=== PATIENT | female | born 1990 | race Caucasian/White ===

== ENCOUNTER 2017-08-10 16:26 | Emergency (ER) | payer MEDICAID ==
[2017-08-10] MEDS ORDERED: Acetaminophen/HYDROcodone 325-5 MG Tab PO ONE (17:11)
[2017-08-10] MEDS ORDERED: Penicillin V Potassium 500 MG Tab PO ONE (17:11)
--- NOTE | 2017-08-10 17:16 | EDM.PDOC ---
ED HPI GENERAL MEDICAL PROBLEM - General Chief Complaint: ENT Problem Stated Complaint: TOOTH PAIN Time Seen by Provider: 08/10/17 17:00 Source of Information: Reports: Patient History Limitations: Reports: No Limitations - History of Present Illness INITIAL COMMENTS - FREE TEXT/NARRATIVE: Patient is a 27-year-old female presents ED complaining of left upper tooth pain. States approximately one year ago the tooth broke off. She has not had any dental care since. She is saving money to have teeth pulled. Denies any swelling to the gumline abnormal drainage. Pain is worse with chewing on the affected side. Denies any additional complaint. Left Upper Tooth/Teeth Pain Score (Numeric/FACES): 7 - Related Data Allergies Allergy/AdvReac Type Severity Reaction Status Date / Time azithromycin Allergy Hives Verified 08/10/17 16:49 prochlorperazine Allergy Itching Verified 08/10/17 16:49 [From Compazine] iv contrast Allergy Chest Uncoded 08/10/17 16:49 Presssure Home Meds: Home Meds Penicillin V Potassium [IJD: Penicillin V Potassium] 500 mg PO .EVERY 6 HOURS # 40 tab 08/10/17 [Rx] Past Medical History HEENT History: Reports: Other (See Below) Other HEENT History: dental issues Gastrointestinal History: Reports: Irritable Bowel Syndrome - Past Surgical History GI Surgical History: Reports: Cholecystectomy Female Surgical History: Reports: Section Social & Family History - Tobacco Use Smoking Status *Q: Current Every Day Smoker Years of Tobacco use: 8 Packs/Tins Daily: 0.5 - Caffeine Use Caffeine Use: Reports: Energy Drinks, Soda - Recreational Drug Use Recreational Drug Use: No ED ROS ENT - Review of Systems Review Of Systems: ROS reveals no pertinent complaints other than HPI. ED EXAM, ENT - Physical Exam Exam: See Below Exam Limited By: No Limitations General Appearance: Alert, WD/WN, No Apparent Distress Ears: Hearing Grossly Normal Nose: Normal Inspection Mouth/Throat: Normal Gums, Normal Lips, Dental Tenderness (#14 tooth. Mild pain with palpation the gumline with no swelling present. No drainage noted. Tooth is partially fractured off.). No: Normal Teeth Neck: Normal Inspection, Supple, Non-Tender, Full Range of Motion. No: Lymphadenopathy (L), Lymphadenopathy (R) Respiratory/Chest: No Respiratory Distress, No Accessory Muscle Use Cardiovascular: Normal Peripheral Pulses, Regular Rate, Rhythm Neurological: Alert, Oriented, CN II-XII Intact, Normal Cognition, No Motor/ Sensory Deficits Psychiatric: Normal Affect, Normal Mood Skin: Warm, Dry, Intact, Normal Color Course - Vital Signs Last Recorded V/S: Last Vital Signs Temp 98.9 F 08/10/17 16:45 Pulse 66 08/10/17 16:45 Resp 20 08/10/17 16:45 BP 124/76 08/10/17 16:45 Pulse Ox 100 08/10/17 16:45 - Orders/Labs/Meds Orders: Active Orders 24 hr Category Date Time Status Acetaminophen/HYDROcodone [[place] 325-5 MG] Med 08/10/17 17:11 Once 1 tab PO ONETIME ONE Penicillin V Potassium [Veetids] Med 08/10/17 17:11 Once 500 mg PO ONETIME ONE - Re-Assessments/Exams Free Text/Narrative Re-Assessment/Exam: Order [place] 5?3 25 and penicillin 500 mg by mouth. We'll discharge patient home with instructions as documented. Departure - Departure Time of Disposition: 17:14 Disposition: Home, Self-Care 01 Condition: Good Clinical Impression: Infected dental caries - Discharge Information Prescriptions: Penicillin V Potassium [IJD: Penicillin V Potassium] 500 mg PO .EVERY 6 HOURS # 40 tab Additional Instructions: Take Tylenol 650 mg every 6 hours and ibuprofen 650 mg every 6 hours in alternating fashion for pain. If not working may switch to Aleve 1-2 tabs twice a day. Do not chew on the affected side. Utilize a fake filling that can be obtained at one of the local pharmacies to reduce exposure to air, fluids, and food. Call and make an appointment to be seen by a dentist this week for definitive treatment. See yor primary care provider for further pain management. Return to the ED if you develop any new or worsening symptoms. Do not drive since receiving a sedative pain medication in the E.D. - My Orders Last 24 Hours: My Active Orders 08/10/17 17:11 Acetaminophen/HYDROcodone [[place] 325-5 MG] 1 tab PO ONETIME ONE Penicillin V Potassium [Veetids] 500 mg PO ONETIME ONE - Assessment/Plan Last 24 Hours: My Active Orders 08/10/17 17:11 Acetaminophen/HYDROcodone [[place] 325-5 MG] 1 tab PO ONETIME ONE Penicillin V Potassium [Veetids] 500 mg PO ONETIME ONE
== END 2017-08-10 17:33 | disposition home or self-care (01) ==
LOC: JD.ED 16:26
DX: K02.9 Dental caries, unspecified (principal); F17.210 Nicotine dependence, cigarettes, uncomplicated; Z88.1 Allergy status to other antibiotic agents; Z88.8 Allergy status to other drugs, medicaments and biological substances; Z91.041 Radiographic dye allergy status
CPT/HCPCS: 99282; A9270; 99283

== ENCOUNTER 2017-08-21 16:34 | Emergency (ER) | payer MEDICAID ==
--- NOTE | 2017-08-21 16:58 | EDM.PDOC ---
ED HPI GENERAL MEDICAL PROBLEM - General Chief Complaint: ENT Problem Stated Complaint: PRESSURE IN FACE Time Seen by Provider: 08/21/17 16:39 Source of Information: Reports: Patient History Limitations: Reports: No Limitations - History of Present Illness INITIAL COMMENTS - FREE TEXT/NARRATIVE: The patient presents with right upper jaw tooth pain. This started a few days ago after she broke a tooth. She has redness and swelling now with pain to her face. She does not have a fever or chills. She has some bad teeth but she does not have a dentist. Onset: Gradual Duration: Day(s): Location: Reports: Face Quality: Reports: Sharp Severity: Severe Improves with: Reports: None Worsens with: Reports: None Associated Symptoms: Reports: No Other Symptoms Right Upper Tooth/Teeth Pain Score (Numeric/FACES): 10 - Related Data Allergies Allergy/AdvReac Type Severity Reaction Status Date / Time azithromycin Allergy Hives Verified 08/10/17 16:49 prochlorperazine Allergy Itching Verified 08/10/17 16:49 [From Compazine] iv contrast Allergy Chest Uncoded 08/10/17 16:49 Presssure Home Meds: Home Meds Penicillin V Potassium [IJD: Penicillin V Potassium] 500 mg PO .EVERY 6 HOURS # 40 tab 08/10/17 [Rx] Penicillin V Potassium 500 mg PO Q6HR #40 tab 08/21/17 [Rx] oxyCODONE HCl/Acetaminophen [Percocet 5-325 mg Tablet] 1 - 2 each PO Q6HR PRN # 20 tablet 08/21/17 [Rx] Past Medical History HEENT History: Reports: Other (See Below) Other HEENT History: dental issues Gastrointestinal History: Reports: Irritable Bowel Syndrome - Past Surgical History GI Surgical History: Reports: Cholecystectomy Female Surgical History: Reports: Section Social & Family History - Tobacco Use Smoking Status *Q: Current Every Day Smoker Years of Tobacco use: 8 Packs/Tins Daily: 0.5 - Caffeine Use Caffeine Use: Reports: Energy Drinks, Soda - Recreational Drug Use Recreational Drug Use: No ED ROS ENT - Review of Systems Review Of Systems: See Below Constitutional: Reports: No Symptoms HEENT: Reports: Dental Pain Respiratory: Reports: No Symptoms Cardiovascular: Reports: No Symptoms Endocrine: Reports: No Symptoms GI/Abdominal: Reports: No Symptoms ED EXAM, ENT - Physical Exam Exam: See Below Exam Limited By: No Limitations General Appearance: Alert, No Apparent Distress Ears: Normal External Exam Nose: Normal Inspection Mouth/Throat: Other (There are multiple cavities and a fractured tooth to the right upper jaw. It appears to be a premolar and 1st molar. There is some erythema and some edema.) Course - Vital Signs Last Recorded V/S: Last Vital Signs Temp 98.4 F 08/21/17 16:39 Pulse 88 08/21/17 16:39 Resp 20 08/21/17 16:39 BP 122/73 08/21/17 16:39 Pulse Ox 96 08/21/17 16:39 Departure - Departure Time of Disposition: 17:00 Disposition: Home, Self-Care 01 Condition: Good Clinical Impression: Dental abscess, Pain, dental, Dental cavity - Discharge Information Prescriptions: oxyCODONE HCl/Acetaminophen [Percocet 5-325 mg Tablet] 1 - 2 each PO Q6HR PRN # 20 tablet PRN Reason: Pain Penicillin V Potassium 500 mg PO Q6HR #40 tab Referrals: PCP,None [Primary Care Provider] - Additional Instructions: Take the medication as prescribed. Follow up with a dentist. [facility] in [place] may be able to help you. Please return if you are worse.
== END 2017-08-21 17:10 | disposition home or self-care (01) ==
LOC: JD.ED 16:34
DX: K04.7 Periapical abscess without sinus (principal); K02.9 Dental caries, unspecified; Z88.1 Allergy status to other antibiotic agents; Z88.8 Allergy status to other drugs, medicaments and biological substances; Z91.041 Radiographic dye allergy status; F17.210 Nicotine dependence, cigarettes, uncomplicated
CPT/HCPCS: 99283

== ENCOUNTER 2017-10-17 10:16 | Emergency (ER) | payer MEDICAID ==
--- NOTE | 2017-10-17 11:02 | EDM.PDOC ---
ED HPI GENERAL MEDICAL PROBLEM - General Chief Complaint: Genitourinary Problem Stated Complaint: PAINFUL URINATION Time Seen by Provider: 10/17/17 10:52 Source of Information: Reports: Patient History Limitations: Reports: No Limitations - History of Present Illness INITIAL COMMENTS - FREE TEXT/NARRATIVE: The patient states that she developed dysuria, including a throbbing urethra, urinary urgency, and urinary frequency 3 or 4 days ago, just after she started her menstrual period 4 days ago. She reports a small amount of lower left back pain, as well. Recent fever. No recent nausea or vomiting. The patient states that she has had similar symptoms perhaps 6 times in her life , always due to a UTI. She has no history of ureterolithiasis. The patient states that she has not taken any [id number] medicines or home remedies for her current symptoms. The patient does not have a PCP. 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 Lower Pelvic Pain Score (Numeric/FACES): 9 - Related Data Allergies Allergy/AdvReac Type Severity Reaction Status Date / Time azithromycin Allergy Hives Verified 10/17/17 10:32 prochlorperazine Allergy Itching Verified 10/17/17 10:32 [From Compazine] iv contrast Allergy Chest Uncoded 10/17/17 10:32 Presssure Home Meds: Home Meds Sulfamethoxazole/Trimethoprim [Bactrim Ds Tablet] 1 tab PO Q12H #5 tablet [Rx] Past Medical History HEENT History: Reports: Other (See Below) Other HEENT History: dental issues Gastrointestinal History: Reports: Irritable Bowel Syndrome 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: - Infectious Disease History Infectious Disease History: Reports: Chicken Pox - Past Surgical History GI Surgical History: Reports: Cholecystectomy Female Surgical History: Reports: Section (x 2) Social & Family History - Tobacco Use Smoking Status *Q: Current Every Day Smoker Years of Tobacco use: 8 Packs/Tins Daily: 0.5 - Caffeine Use Caffeine Use: Reports: Energy Drinks, Soda - Alcohol Use Alcohol Use History: Yes Alcohol Use Frequency: Socially - Recreational Drug Use Recreational Drug Use: No - Living Situation & Occupation Living situation: Reports: , with Significant Other (Boyfriend), with Family (2 kids) Occupation: Employed ([employer]) ED ROS GENERAL - Review of Systems Review Of Systems: ROS reveals no pertinent complaints other than HPI. ED EXAM, RENAL/ - Physical Exam Exam: See Below Exam Limited By: No Limitations General Appearance: Alert, WD/WN, No Apparent Distress Eye Exam: Bilateral Eye: Normal Inspection Ears: Normal External Exam, Hearing Grossly Normal Nose: Normal Inspection, No Blood Throat/Mouth: Normal Inspection, Normal Lips, Normal Voice, No Airway Compromise Head: Atraumatic, Normocephalic Neck: Normal Inspection, Full Range of Motion Respiratory/Chest: No Respiratory Distress, Lungs Clear, Normal Breath Sounds, No Accessory Muscle Use Cardiovascular: Normal Peripheral Pulses, Regular Rate, Rhythm, No Edema, No Gallop, No JVD, No Murmur, No Rub GI/Abdominal: Normal Bowel Sounds, Soft, No Organomegaly, No Distention, No Abnormal Bruit, No Mass, Tender (Minimal, suprapubic only. Nontender elsewhere.) (Female) Exam: Deferred Rectal (Female) Exam: Deferred Back Exam: Normal Inspection, Full Range of Motion. No: CVA Tenderness (L), CVA Tenderness (R) Extremities: Normal Inspection, Normal Range of Motion, No Pedal Edema, Normal Capillary Refill Neurological: Alert, Oriented, Normal Cognition, No Motor/Sensory Deficits Psychiatric: Normal Affect Skin Exam: Warm, Dry, Intact, Normal Color, No Rash Course - Vital Signs Last Recorded V/S: Last Vital Signs Temp 36.5 C 10/17/17 10:30 Pulse 80 10/17/17 10:30 Resp 18 10/17/17 10:30 BP 108/64 10/17/17 10:30 Pulse Ox 100 10/17/17 10:30 - Orders/Labs/Meds Orders: Active Orders 24 hr Category Date Time Status Insert Mathew Catheter [Insert Urinary Catheter] [OM.PC] Care 10/17/17 10:45 Ordered Q24H Urinary Catheter Assessment [RC] ASDIRECTED Care 10/17/17 10:45 Active HCG QUALITATIVE,URINE [URCHEM] Stat Lab 10/17/17 10:50 Ordered UA W/MICROSCOPIC [URIN] Stat Lab 10/17/17 10:50 Ordered Labs: Laboratory Tests 10/17/17 10/17/17 Range/Units 10:50 10:50 Urine Color Yellow (Yellow) Urine Appearance Cloudy H (Clear) Urine pH 6.0 (5.0-8.0) Ur Specific [place] 1.025 (1.005-1.030) Urine Protein 1+ H (Negative) Urine Glucose (UA) Negative (Negative) Urine Ketones Negative (Negative) Urine Occult Blood 3+ H (Negative) Urine Nitrite Negative (Negative) Urine Bilirubin Negative (Negative) Urine Urobilinogen 0.2 (0.2-1.0) Ur Leukocyte Esterase 3+ H (Negative) Urine RBC 5-10 H (0-5) /hpf Urine WBC 20-30 H (0-5) /hpf Ur Epithelial Cells 0-5 (0-5) /hpf Urine Bacteria Few (FEW) /hpf Urine Mucus Not seen (FEW) /hpf Urine HCG, Qual Negative (NEGATIVE) - Re-Assessments/Exams Free Text/Narrative Re-Assessment/Exam: 10/17/17 11:37 The patient's urinalysis shows primarily pyuria, with very little bacteria, nevertheless, because the patient is so symptomatic, I will treat her for a UTI with Bactrim and Pyridium. A urine culture has been ordered. 10/17/17 11:43 Test results discussed with the patient. As above, the patient will receive her first dose of Bactrim and Pyridium here in the ED, then I will prescribe a three -day course of Bactrim. Azo is available [id number]. Patient is advised to stay adequately hydrated. I would like the patient to follow-up with Dr. Flowers this coming 10/20/2017, not only check on her urine culture results , but to establish her as a PCP, as well. Departure - Departure Time of Disposition: 11:44 Disposition: Home, Self-Care 01 Condition: Good Clinical Impression: Cystitis - Discharge Information Referrals: PCP,None [Primary Care Provider] - Mahi Flowers MD [Physician] - Forms: ED Department Discharge Additional Instructions: You were seen in the emergency room for painful urination, urinary frequency, and urinary urgency. Workup in the ER included a urinalysis and a urine test. Your urinalysis shows some white blood cells in your urine, consistent with a UTI, but only a few bacteria, therefore it is not certain that you have a urinary tract infection. A urine culture was sent. Your urine test was negative. You have been started on the antibiotic Bactrim. A prescription for Bactrim has been sent to the [facility], [address] [place] [address]. Take one tablet every 12 hours starting tonight, 10/17/2017. Finish the entire prescription unless told otherwise by a doctor. You have also been started on the anti-pain medicine Pyridium. Pyridium is sold [id number] as "Azo". You can take a total of 6 doses, meaning that you have 5 more. You can take 1 dose twice a day for 3 days or one dose 3 times a day for 2 days - your choice. Be aware that Pyridium will turn your urine orange - this is normal. Stay adequately hydrated. It does not make any difference what fluid you drink. Follow-up with Dr. Mahi Flowers this coming 10/20/2017, not only to check on your urine culture results, but to establish her as a primary care physician. If any other problems, please do not hesitate to return to the ER. - My Orders Last 24 Hours: My Active Orders 10/17/17 10:45 Insert Mathew Catheter [Insert Urinary Catheter] [OM.PC] Q24H Urinary Catheter Assessment [RC] ASDIRECTED 10/17/17 10:50 HCG QUALITATIVE,URINE [URCHEM] Stat UA W/MICROSCOPIC [URIN] Stat - Assessment/Plan Last 24 Hours: My Active Orders 10/17/17 10:45 Insert Mathew Catheter [Insert Urinary Catheter] [OM.PC] Q24H Urinary Catheter Assessment [RC] ASDIRECTED 10/17/17 10:50 HCG QUALITATIVE,URINE [URCHEM] Stat UA W/MICROSCOPIC [URIN] Stat
[2017-10-17] MEDS ORDERED: Sulfamethoxazole/Trimethoprim 800-160 MG Tab PO ONE (11:36)
[2017-10-17] MEDS ORDERED: Phenazopyridine 95 MG Tab PO STA (11:38)
== END 2017-10-17 12:00 | disposition home or self-care (01) ==
LOC: JD.ED 10:16
DX: N30.90 Cystitis, unspecified without hematuria (principal); B96.20 Unspecified Escherichia coli [E. coli] as the cause of diseases classified elsewhere; F17.210 Nicotine dependence, cigarettes, uncomplicated; Z88.1 Allergy status to other antibiotic agents; Z88.8 Allergy status to other drugs, medicaments and biological substances
CPT/HCPCS: 51702; 81001; 81025; 87086; 87088; 87186; 99283; A9270; 99284

== ENCOUNTER 2019-02-02 06:21 | Emergency (ER) | payer BC, MEDICAID ==
--- NOTE | 2019-02-02 07:03 | EDM.PDOC ---
ED HPI GENERAL MEDICAL PROBLEM - General Chief Complaint: Genitourinary Problem Stated Complaint: POSS UTI Time Seen by Provider: 02/02/19 07:03 Source of Information: Reports: Patient History Limitations: Reports: No Limitations - History of Present Illness INITIAL COMMENTS - FREE TEXT/NARRATIVE: 28-year-old female presents with severe dysuria urgency and frequency with some chills over the last 48 hours. She has noted gross hematuria this morning. She had a bladder infection about a month to 6 weeks ago. Did not think that she could be . However. She test will be done. Diffuse suprapubic abdominal pain and no back pain does feel further bluish or she was up about every half- hour voiding all night. Onset: Gradual Onset Date: 02/01/19 Duration: Hour(s):, Getting Worse Location: Reports: Abdomen (Suprapubic abdomen associate with urinary tract symptoms of urgency frequency and dysuria.) Quality: Reports: Other Severity: Moderate (Dysuria) Improves with: Reports: None Worsens with: Reports: None Context: Denies: Activity, Exercise, Lifting, Sick Contact, Trauma, Other Associated Symptoms: Reports: Fever/Chills, Nausea/Vomiting (Mild nausea). 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.) Pelvic Pain Score (Numeric/FACES): 8 - Related Data Allergies Allergy/AdvReac Type Severity Reaction Status Date / Time azithromycin Allergy Hives Verified 02/02/19 06:27 prochlorperazine Allergy Itching Verified 02/02/19 06:27 [From Compazine] iv contrast Allergy Chest Uncoded 10/17/17 10:32 Presssure Home Meds: Home Meds Phenazopyridine HCl [Pyridium] 100 mg PO Q6H #2 tablet 02/02/19 [Rx] levoFLOXacin [Levaquin] 500 mg PO DAILY #7 tab 02/02/19 [Rx] Past Medical History HEENT History: Reports: Other (See Below) Other HEENT History: dental issues Gastrointestinal History: Reports: Irritable Bowel Syndrome Genitourinary History: Reports: UTI, Recurrent 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: Neurological History: Reports: Migraines - Infectious Disease History Infectious Disease History: Reports: Chicken Pox - Past Surgical History GI Surgical History: Reports: Cholecystectomy Female Surgical History: Reports: Section Social & Family History - Tobacco Use Smoking Status *Q: Current Every Day Smoker Years of Tobacco use: 10 Packs/Tins Daily: 1 - Caffeine Use Caffeine Use: Reports: Energy Drinks, Soda - Living Situation & Occupation Living situation: Reports: , with Significant Other (Boyfriend), with Family (2 kids) Occupation: Employed ([employer]) ED ROS GENERAL - Review of Systems Review Of Systems: See Below Constitutional: Reports: Fever, Malaise (Low-grade fever last night.), Weakness , Fatigue, Decreased Appetite (Not sleeping all night.). Denies: Chills HEENT: Reports: No Symptoms Respiratory: Reports: No Symptoms Cardiovascular: Reports: No Symptoms Endocrine: Reports: No Symptoms GI/Abdominal: Reports: Abdominal Pain (Suprapubic abdominal pressure discomfort. ) : Reports: Dysuria, Frequency, Hematuria, Urgency Musculoskeletal: Reports: No Symptoms (Did notice gross hematuria this morning.) . Denies: Back Pain Skin: Reports: No Symptoms Neurological: Reports: No Symptoms Psychiatric: Reports: No Symptoms Hematologic/Lymphatic: Reports: No Symptoms Immunologic: Reports: No Symptoms ED EXAM, RENAL/ - Physical Exam Exam: See Below Exam Limited By: No Limitations General Appearance: Alert, WD/WN, Mild Distress, Other (Appears uncomfortable. Essentially she is afebrile 36.9. Pulse is [address] no sats of 98% on room air.) Eye Exam: Bilateral Eye: Normal Inspection Head: Atraumatic, Normocephalic Neck: Normal Inspection, Supple, Non-Tender, Full Range of Motion Respiratory/Chest: No Respiratory Distress, Lungs Clear, Normal Breath Sounds, No Accessory Muscle Use, Chest Non-Tender Cardiovascular: Normal Peripheral Pulses, Regular Rate, Rhythm, No Edema, No Gallop, No Murmur, No Rub GI/Abdominal: Normal Bowel Sounds, Soft, No Organomegaly, No Abnormal Bruit, Tender. No: Guarding (Tender suprapubically. No rebound or guarding), Rigid, Rebound Back Exam: Normal Inspection, Full Range of Motion. No: CVA Tenderness (L), CVA Tenderness (R) Extremities: Normal Inspection, Normal Range of Motion, Non-Tender, No Pedal Edema Neurological: Alert, Oriented, CN II-XII Intact, Normal Cognition, Normal Gait Psychiatric: Normal Affect, Normal Mood Skin Exam: Warm, Dry, Intact, Normal Color, No Rash Course - Vital Signs Last Recorded V/S: Last Vital Signs Temp 36.9 C 02/02/19 06:28 Pulse 87 02/02/19 06:28 Resp 18 02/02/19 06:28 BP 112/67 02/02/19 06:28 Pulse Ox 98 02/02/19 06:28 - Orders/Labs/Meds Orders: Active Orders 24 hr Category Date Time Status HCG QUALITATIVE,URINE [URCHEM] Stat Lab 02/02/19 06:40 Received UA W/MICROSCOPIC [URIN] Stat Lab 02/02/19 06:35 Results levoFLOXacin [Levaquin] Med 02/02/19 07:46 Once 500 mg PO ONETIME ONE Labs: Laboratory Tests 02/02/19 Range/Units 06:35 Urine Color Yellow (Yellow) Urine Appearance Cloudy H (Clear) Urine pH 6.5 (5.0-8.0) Ur Specific [place] > or = 1.030 (1.005-1.030) Urine Protein 2+ H (Negative) Urine Glucose (UA) Negative (Negative) Urine Ketones Negative (Negative) Urine Occult Blood 2+ H (Negative) Urine Nitrite Positive H (Negative) Urine Bilirubin Negative (Negative) Urine Urobilinogen 0.2 (0.2-1.0) Ur Leukocyte Esterase 2+ H (Negative) Meds: Medications Discontinued Medications Generic Name Dose Route Start Last Admin Trade Name Graysonq PRN Reason Stop Dose Admin Phenazopyridine HCl 95 mg 02/02/19 09:00 Urinary Pain Relief PO TIDPC [facility] Phenazopyridine HCl 95 mg 02/02/19 07:09 02/02/19 07:23 Urinary Pain Relief PO 02/02/19 07:10 95 mg NOW ONE Administration - Radiology Interpretation Free Text/Narrative:: 28-year-old female presents with acute onset of lower urinary tract symptoms over the last 48 hours. She was offered a half hour voiding last night with severe dysuria urgency and now development of gross hematuria. She is prone to urinary tract infections. She believes her last was about a month ago. No signs or symptoms of upper urinary tract symptoms at this time. - Re-Assessments/Exams Free Text/Narrative Re-Assessment/Exam: 02/02/19 07:44 Dip shows cloudy urine 2+ protein 2+ occult blood positive nitrates and 2+ leukocyte Estrace. Departure - Departure Time of Disposition: 07:47 Disposition: Home, Self-Care 01 Condition: Fair Clinical Impression: UTI, Urinary tract infectious disease - Discharge Information *PRESCRIPTION DRUG MONITORING PROGRAM REVIEWED*: Not Applicable *COPY OF PRESCRIPTION DRUG MONITORING REPORT IN PATIENT LESVIA: Not Applicable Prescriptions: levoFLOXacin [Levaquin] 500 mg PO DAILY #7 tab Phenazopyridine HCl [Pyridium] 100 mg PO Q6H #2 tablet Referrals: Mahi Flowers MD [Primary Care Provider] - Forms: ED Department Discharge, ED Return to Work/School Form Additional Instructions: Evaluation the emergency room this morning in regards to development of lower urinary tract symptoms of infection over the last 2 days. Associated marked dysuria means painful urination urgency and frequency overnight with associated development of blood in the urine. Because of this gross hematuria. Urinalysis done in the ED is strongly positive for infection. At this point time it does not show any evidence of kidney infection. Was started in the ED with Levaquin 500 mg by mouth as an antibiotic and you need to take this once daily every morning for the next 7 days. Pyridium you are given initial dose in the ED next dose would be due around 12:30 this afternoon and again at 1830 hrs. this evening if needed to relieve further symptoms of dysuria urgency or frequency. Drink plenty of fluids today tach is a flush. - My Orders Last 24 Hours: My Active Orders 02/02/19 07:46 levoFLOXacin [Levaquin] 500 mg PO ONETIME ONE - Assessment/Plan Last 24 Hours: My Active Orders 02/02/19 07:46 levoFLOXacin [Levaquin] 500 mg PO ONETIME ONE
[2019-02-02] MEDS ORDERED: Phenazopyridine 95 MG Tab PO ONE (07:09)
[2019-02-02] MEDS ORDERED: Levofloxacin 250 MG Tab PO ONE (07:46)
[2019-02-02] MEDS ORDERED: Phenazopyridine 95 MG Tab PO SCH (09:00)
== END 2019-02-02 08:00 | disposition home or self-care (01) ==
LOC: JD.ED 06:21
DX: N39.0 Urinary tract infection, site not specified (principal); F17.210 Nicotine dependence, cigarettes, uncomplicated; Z88.1 Allergy status to other antibiotic agents; Z88.8 Allergy status to other drugs, medicaments and biological substances; Z91.041 Radiographic dye allergy status
CPT/HCPCS: 81001; 81025; 99283; A9270

== ENCOUNTER 2019-06-04 18:33 | Emergency (ER) | payer BC ==
[2019-06-04] MEDS ORDERED: Codeine/Promethazine 10-6.25 MG/5 ML Syrup 5 ML UD Cup PO ONE (19:05)
--- NOTE | 2019-06-04 19:11 | EDM.PDOC ---
ED HPI GENERAL MEDICAL PROBLEM - General Chief Complaint: Respiratory Problem Stated Complaint: sick one week chest pain and back pain Time Seen by Provider: 06/04/19 18:58 Source of Information: Reports: Patient History Limitations: Reports: No Limitations - History of Present Illness INITIAL COMMENTS - FREE TEXT/NARRATIVE: The patient presents with a cough, fever, shortness of breath, back pain and chest pain. The cough and fever have been going on for a few days. She developed the chest pain and back pain today. She has no history of asthma. She does smoke. Onset: Gradual Duration: Day(s): Location: Reports: Chest, Back Quality: Reports: Sharp Severity: Moderate Improves with: Reports: None Worsens with: Reports: None Associated Symptoms: Reports: Cough, Fever/Chills, Shortness of Breath. Denies : Chest Pain, Headaches, Nausea/Vomiting Upper Back Pain Score (Numeric/FACES): 10 - Related Data Allergies Allergy/AdvReac Type Severity Reaction Status Date / Time azithromycin Allergy Hives Verified 06/04/19 18:41 prochlorperazine Allergy Itching Verified 06/04/19 18:41 [From Compazine] iv contrast Allergy Chest Uncoded 10/17/17 10:32 Presssure Home Meds: Home Meds Albuterol [Proventil HFA] 2 puff INH Q4H PRN #1 inhaler 06/04/19 [Rx] Codeine/Promethazine [Phenergan with Codeine] 5 - 10 ml PO Q6HR PRN #300 ml [Rx] Doxycycline [Vibramycin] 100 mg PO BID #14 cap 06/04/19 [Rx] Past Medical History HEENT History: Reports: Other (See Below) Other HEENT History: dental issues Gastrointestinal History: Reports: Irritable Bowel Syndrome Genitourinary History: Reports: UTI, Recurrent 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: Neurological History: Reports: Migraines - Infectious Disease History Infectious Disease History: Reports: Chicken Pox - Past Surgical History GI Surgical History: Reports: Cholecystectomy Female Surgical History: Reports: Section Social & Family History - Tobacco Use Smoking Status *Q: Current Every Day Smoker Years of Tobacco use: 10 Packs/Tins Daily: 0.5 - Caffeine Use Caffeine Use: Reports: None - Recreational Drug Use Recreational Drug Use: No - Living Situation & Occupation Living situation: Reports: , with Significant Other (Boyfriend), with Family (2 kids) Occupation: Employed ([employer]) ED ROS GENERAL - Review of Systems Review Of Systems: See Below Constitutional: Reports: No Symptoms HEENT: Reports: No Symptoms Respiratory: Reports: Shortness of Breath, Cough Cardiovascular: Reports: Chest Pain Endocrine: Reports: No Symptoms GI/Abdominal: Reports: No Symptoms : Reports: No Symptoms Musculoskeletal: Reports: Back Pain Skin: Reports: No Symptoms Neurological: Reports: No Symptoms ED EXAM, GENERAL - Physical Exam Exam: See Below Exam Limited By: No Limitations General Appearance: Alert, No Apparent Distress Ears: Normal External Exam Nose: Normal Inspection Head: Atraumatic, Normocephalic Neck: Normal Inspection Respiratory/Chest: No Respiratory Distress, Lungs Clear, Normal Breath Sounds Cardiovascular: Regular Rate, Rhythm, No Edema, No Murmur GI/Abdominal: Soft, Non-Tender, No Organomegaly, No Mass Back Exam: Normal Inspection Extremities: Normal Inspection Neurological: Alert, Oriented, No Motor/Sensory Deficits Course - Vital Signs Last Recorded V/S: Last Vital Signs Temp 99.4 F 06/04/19 18:41 Pulse 102 H 06/04/19 18:41 Resp 13 06/04/19 18:41 BP 114/68 06/04/19 18:41 Pulse Ox 95 06/04/19 18:41 - Orders/Labs/Meds Orders: Active Orders 24 hr Category Date Time Status CXR [Chest 2V] [CR] Stat Exams 06/04/19 19:05 Taken Meds: Medications Discontinued Medications Generic Name Dose Route Start Last Admin Trade Name Rashid PRN Reason Stop Dose Admin Promethazine HCl/Codeine 10 ml 06/04/19 19:05 06/04/19 19:22 Phenergan With Codeine PO 06/04/19 19:06 10 ml ONETIME ONE Administration - Re-Assessments/Exams Free Text/Narrative Re-Assessment/Exam: 06/04/19 19:11 I ordered a CXR, influenza and phenergan with codeine. 06/04/19 20:09 The influenza is negative. Her CXR shows an early pneumonia in the left lower abdomen. I will get her on some doxycycline, albuterol and phenergan with codeine. Departure - Departure Time of Disposition: 20:15 Disposition: Home, Self-Care 01 Condition: Good Clinical Impression: Pneumonia Qualifiers: Pneumonia type: due to unspecified organism Laterality: left Lung location: lower lobe of lung Qualified Code(s): J18.9 - Pneumonia, unspecified organism - Discharge Information *PRESCRIPTION DRUG MONITORING PROGRAM REVIEWED*: Not Applicable *COPY OF PRESCRIPTION DRUG MONITORING REPORT IN PATIENT LESVIA: Not Applicable Prescriptions: Codeine/Promethazine [Phenergan with Codeine] 5 - 10 ml PO Q6HR PRN #300 ml PRN Reason: Cough Albuterol [Proventil HFA] 2 puff INH Q4H PRN #1 inhaler PRN Reason: Shortness Of Breath Doxycycline [Vibramycin] 100 mg PO BID #14 cap Referrals: Mahi Flowers MD [Primary Care Provider] - 1 Week Forms: ED Department Discharge, ED Return to Work/School Form Additional Instructions: Take the doxycycline 2 times per day for 7 days. Use the inhaler 2 puffs every 6 hours as needed for shortness of breath. Take the phenergan with codeine 10mls every 6 hours as needed for cough. Drink plenty of fluids. Take motrin or tylenol for pain. Try to stop smoking. Please return if you are worse. Sepsis Event Note - Evaluation Sepsis Screening Result: Possible Sepsis Risk - Focused Exam Vital Signs: Vital Signs Temp Pulse Resp BP Pulse Ox 06/04/19 18:41 99.4 F 102 H 13 114/68 95 Date Exam was Performed: 06/04/19 Time Exam was Performed: 20:09 - My Orders Last 24 Hours: My Active Orders 06/04/19 19:05 CXR [Chest 2V] [CR] Stat - Assessment/Plan Last 24 Hours: My Active Orders 06/04/19 19:05 CXR [Chest 2V] [CR] Stat
--- NOTE | 2019-06-05 16:33 | CR ---
Chest: Two views of the chest were obtained. Comparison: No previous chest imaging. Slight parenchymal density within the lingula is seen. Lungs otherwise are clear. Heart size and mediastinum are normal. Bony structures are unremarkable. Impression: 1. Probable lingular pneumonia. Diagnostic code #3 This report was dictated in [place] Standard Time
== END 2019-06-04 20:38 | disposition home or self-care (01) ==
LOC: JD.ED 18:33
DX: J18.9 Pneumonia, unspecified organism (principal); F17.210 Nicotine dependence, cigarettes, uncomplicated; Z88.8 Allergy status to other drugs, medicaments and biological substances; Z88.1 Allergy status to other antibiotic agents; Z91.041 Radiographic dye allergy status
CPT/HCPCS: 71046; 87804; 99285; A9270; 99283

== ENCOUNTER 2020-04-08 18:29 | Emergency (ER) | payer BC ==
[2020-04-08] MEDS ORDERED: Sodium Chloride 0.9% 1,000 ML IV STA (19:05)
[2020-04-08] MEDS ORDERED: Ondansetron 4 MG/2 ML SDV IVPUSH ONE (19:05)
[2020-04-08] MEDS ORDERED: HYDROmorphone 0.5 MG/0.5 ML Syringe IVPUSH ONE ×2 (19:05→21:10)
[2020-04-08] MEDS ORDERED: Ketorolac 30 MG/ML SDV IVPUSH ONE (20:39)
--- NOTE | 2020-04-08 21:11 | EDM.PDOC ---
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 Patient states that she had intercourse with her last night. After, she developed vaginal bleeding as well as significant left-sided pelvic pain. 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 She states that Dr. Gallardo had her on a 1 month pack of control pills which she finished 2 days ago. She states this was for bleeding of her cervix. Bleeding has been intermittent since last evening. She stated initially she had passage of some small clots and then the bleeding stopped. Upon arrival to ER, she did notice some more vaginal bleeding. She denies a history of ovarian cyst. She did have a transvaginal ultrasound completed with Dr. Gallardo which showed nabothian cysts but no other abnormalities. She denies any recent fever, chills. She has been nauseous but has had no vomiting. She has not taken anything for pain today. Left Pelvic Pain Score (Numeric/FACES): 7 - Related Data Allergies Allergy/AdvReac Type Severity Reaction Status Date / Time azithromycin Allergy Hives Verified 04/08/20 18:47 prochlorperazine Allergy Itching Verified 04/08/20 18:47 [From Compazine] iv contrast Allergy Chest Uncoded 04/08/20 18:47 Presssure Home Meds: Home Meds Albuterol [Proventil HFA] 2 puff INH Q4H PRN #1 inhaler 06/04/19 [Rx] Acetaminophen/HYDROcodone [[place] 325-5 MG] 1 tab PO Q4H PRN #10 tablet 04/08/20 [Rx] Past Medical History HEENT History: Reports: Other (See Below) Other HEENT History: dental issues Gastrointestinal History: Reports: Irritable Bowel Syndrome Genitourinary History: Reports: UTI, Recurrent 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: Neurological History: Reports: Migraines - Infectious Disease History Infectious Disease History: Reports: Chicken Pox - Past Surgical History GI Surgical History: Reports: Cholecystectomy Female Surgical History: Reports: Section Social & Family History - Tobacco Use Tobacco Use Status *Q: Current Every Day Tobacco User Years of Tobacco use: 11 Packs/Tins Daily: 0.5 - Caffeine Use Caffeine Use: Reports: None - Recreational Drug Use Recreational Drug Use: No - Living Situation & Occupation Living situation: Reports: , with Significant Other (Boyfriend), with Family (2 kids) Occupation: Employed ([employer]) ED ROS GENERAL - Review of Systems Review Of Systems: See Below Constitutional: Reports: No Symptoms HEENT: Reports: No Symptoms Respiratory: Reports: No Symptoms Cardiovascular: Reports: No Symptoms Endocrine: Reports: No Symptoms GI/Abdominal: Reports: No Symptoms : Reports: Irregular Menses, Pain Musculoskeletal: Reports: No Symptoms Skin: Reports: No Symptoms Neurological: Reports: No Symptoms Psychiatric: Reports: No Symptoms Hematologic/Lymphatic: Reports: No Symptoms Immunologic: Reports: No Symptoms ED EXAM, RENAL/ - Physical Exam Exam: See Below General Appearance: Alert, Mild Distress Respiratory/Chest: No Respiratory Distress, Lungs Clear, Normal Breath Sounds, No Accessory Muscle Use, Chest Non-Tender Cardiovascular: Normal Peripheral Pulses, Regular Rate, Rhythm, No Edema, No Gallop, No JVD, No Murmur, No Rub GI/Abdominal: Normal Bowel Sounds, Soft, No Organomegaly, No Distention, No Abnormal Bruit, No Mass, Tender (Left pelvic tenderness) (Female) Exam: Normal Speculum Exam, Vaginal Bleeding (From the cervical os). No: Cervical Dilatation, Cervical Lesions, Vaginal Lesions, Vaginal Tears Neurological: Alert, Oriented, CN II-XII Intact, Normal Cognition, Normal Gait, Normal Reflexes, No Motor/Sensory Deficits Psychiatric: Normal Affect, Normal Mood Skin Exam: Warm, Dry, Intact, Normal Color, No Rash Course - Vital Signs Last Recorded V/S: Last Vital Signs Temp 97.8 F 04/08/20 18:45 Pulse 80 04/08/20 18:45 Resp 18 04/08/20 18:45 BP 109/68 04/08/20 18:45 Pulse Ox 99 04/08/20 18:45 - Orders/Labs/Meds Labs: Laboratory Tests 04/08/20 04/08/20 04/08/20 Range/Units 19:15 19:15 19:15 WBC 8.38 (3.98-10.04) K/mm3 RBC 3.62 L (3.98-5.22) M/mm3 Hgb 10.6 L (11.2-15.7) gm/dl Hct 33.4 L (34.1-44.9) % MCV 92.3 (79.4-94.8) fl MCH 29.3 (25.6-32.2) pg MCHC 31.7 L (32.2-35.5) g/dl RDW Std Deviation 49.6 H (36.4-46.3) fL Plt Count 332 (182-369) K/mm3 MPV 9.6 (9.4-12.3) fl Neut % (Auto) 66.9 (34.0-71.1) % Lymph % (Auto) 23.3 (19.3-51.7) % Mason % (Auto) 7.3 (4.7-12.5) % Eos % (Auto) 2.3 (0.7-5.8) Baso % (Auto) 0.1 (0.1-1.2) % Neut # (Auto) 5.61 (1.56-6.13) K/mm3 Lymph # (Auto) 1.95 (1.18-3.74) K/mm3 Mason # (Auto) 0.61 H (0.24-0.36) K/mm3 Eos # (Auto) 0.19 (0.04-0.36) K/mm3 Baso # (Auto) 0.01 (0.01-0.08) K/mm3 Sodium 139 (136-145) mEq/L Potassium 3.3 L (3.5-5.1) mEq/L Chloride 106 (98-107) mEq/L Carbon Dioxide 23 (21-32) mEq/L Anion Gap 13.3 (5-15) BUN 9 (7-18) mg/dL Creatinine 0.8 (0.55-1.02) mg/dL Est Cr Clr Drug Dosing 87.99 mL/min Estimated GFR (MDRD) > 60 (>60) mL/min BUN/Creatinine Ratio 11.3 L (14-18) Glucose 82 (74-106) mg/dL Calcium 8.3 L (8.5-10.1) mg/dL Total Bilirubin 0.5 (0.2-1.0) mg/dL AST 11 L (15-37) U/L ALT 18 (14-59) U/L Alkaline Phosphatase 43 L (46-116) U/L C-Reactive Protein 0.9 (<1.0) mg/dL Total Protein 6.3 L (6.4-8.2) g/dl Albumin 3.2 L (3.4-5.0) g/dl Globulin 3.1 gm/dL Albumin/Globulin Ratio 1.0 (1-2) Urine Color Mami H (Yellow) Urine Appearance Cloudy H (Clear) Urine pH 6.0 (5.0-8.0) Ur Specific [place] > or = 1.030 (1.005-1.030) Urine Protein 2+ H (Negative) Urine Glucose (UA) Negative (Negative) Urine Ketones Trace H (Negative) Urine Occult Blood 3+ H (Negative) Urine Nitrite Negative (Negative) Urine Bilirubin 1+ H (Negative) Urine Urobilinogen 0.2 (0.2-1.0) Ur Leukocyte Esterase Negative (Negative) Urine RBC 50-75 H (0-5) /hpf Urine WBC 0-5 (0-5) /hpf Ur Squamous Epith Cells 0-5 (0-5) /hpf Urine Bacteria Moderate H (FEW) /hpf Urine Mucus Moderate H (FEW) /hpf Urine HCG, Qual (NEGATIVE) 04/08/20 Range/Units 19:30 WBC (3.98-10.04) K/mm3 RBC (3.98-5.22) M/mm3 Hgb (11.2-15.7) gm/dl Hct (34.1-44.9) % MCV (79.4-94.8) fl MCH (25.6-32.2) pg MCHC (32.2-35.5) g/dl RDW Std Deviation (36.4-46.3) fL Plt Count (182-369) K/mm3 MPV (9.4-12.3) fl Neut % (Auto) (34.0-71.1) % Lymph % (Auto) (19.3-51.7) % Mason % (Auto) (4.7-12.5) % Eos % (Auto) (0.7-5.8) Baso % (Auto) (0.1-1.2) % Neut # (Auto) (1.56-6.13) K/mm3 Lymph # (Auto) (1.18-3.74) K/mm3 Mason # (Auto) (0.24-0.36) K/mm3 Eos # (Auto) (0.04-0.36) K/mm3 Baso # (Auto) (0.01-0.08) K/mm3 Sodium (136-145) mEq/L Potassium (3.5-5.1) mEq/L Chloride (98-107) mEq/L Carbon Dioxide (21-32) mEq/L Anion Gap (5-15) BUN (7-18) mg/dL Creatinine (0.55-1.02) mg/dL Est Cr Clr Drug Dosing mL/min Estimated GFR (MDRD) (>60) mL/min BUN/Creatinine Ratio (14-18) Glucose (74-106) mg/dL Calcium (8.5-10.1) mg/dL Total Bilirubin (0.2-1.0) mg/dL AST (15-37) U/L ALT (14-59) U/L Alkaline Phosphatase (46-116) U/L C-Reactive Protein (<1.0) mg/dL Total Protein (6.4-8.2) g/dl Albumin (3.4-5.0) g/dl Globulin gm/dL Albumin/Globulin Ratio (1-2) Urine Color (Yellow) Urine Appearance (Clear) Urine pH (5.0-8.0) Ur Specific [place] (1.005-1.030) Urine Protein (Negative) Urine Glucose (UA) (Negative) Urine Ketones (Negative) Urine Occult Blood (Negative) Urine Nitrite (Negative) Urine Bilirubin (Negative) Urine Urobilinogen (0.2-1.0) Ur Leukocyte Esterase (Negative) Urine RBC (0-5) /hpf Urine WBC (0-5) /hpf Ur Squamous Epith Cells (0-5) /hpf Urine Bacteria (FEW) /hpf Urine Mucus (FEW) /hpf Urine HCG, Qual Negative (NEGATIVE) Meds: Medications Discontinued Medications Generic Name Dose Route Start Last Admin Trade Name Freq PRN Reason Stop Dose Admin Hydromorphone HCl 0.5 mg 04/08/20 19:05 04/08/20 19:17 Dilaudid IVPUSH 12/19/20 19:06 0.5 mg ONETIME ONE Administration Hydromorphone HCl 0.5 mg 04/08/20 21:10 04/08/20 21:17 Dilaudid IVPUSH 04/08/20 21:11 0.5 mg ONETIME ONE Administration Sodium Chloride 1,000 mls @ 150 mls/hr 04/08/20 19:05 04/08/20 19:17 Normal Saline IV 04/09/20 01:44 150 mls/hr NOW STA Administration Ketorolac Tromethamine 30 mg 04/08/20 20:39 04/08/20 20:48 Toradol IVPUSH 04/08/20 20:40 30 mg ONETIME ONE Administration Ondansetron HCl 4 mg 04/08/20 19:05 04/08/20 19:17 Zofran IVPUSH 04/08/20 19:06 4 mg ONETIME ONE Administration - Re-Assessments/Exams Free Text/Narrative Re-Assessment/Exam: Patient is a 29-year-old female presenting to the ER with complaints of left- sided pelvic pain and vaginal bleeding after intercourse last evening. She does have a history of pelvic pain for which she was seeing Dr. Gallardo. States that she just finished a 1 month pack of control pills for treatment of bleeding of her cervix 2 days ago. She does appear to be in discomfort. I have ordered CBC, CMP, CRP, urinalysis, urine test, transvaginal ultrasound. I will give her normal saline at 150 mils per hour, Zofran 4 mg IV, and Dilaudid 0.5 mg IV. 04/08/20 21:17 Hematology was significant for hemoglobin slightly low at 10.6, potassium 3.3. Urinalysis was negative for infection. test was negative. Transvaginal ultrasound showed no evidence of ovarian torsion. She does have a 2 cm hemorrhagic cyst on her left ovary. There is no fluid visualized within her pelvis. Discussed results with patient. Discussed that vaginal bleeding is likely her. Related to stopping active control pills 2 days ago. The le ft hemorrhagic cyst is likely the cause of her pelvic pain. Case discussed with Dr. Suh. He agrees with the plan to discharge her with pain management and follow-up with Dr. Gallardo. I will give patient additional dose of Dilaudid 0.5 mg and sent a prescription for [place]. Recommend ibuprofen routinely. [place] as needed for breakthrough pain. Call to schedule follow-up with Dr. Gallardo on Friday. Discharge instructions as documented. Departure - Departure Time of Disposition: 21:07 Disposition: Home, Self-Care 01 Condition: Good Clinical Impression: Hemorrhagic cyst of left ovary - Discharge Information *PRESCRIPTION DRUG MONITORING PROGRAM REVIEWED*: Yes *COPY OF PRESCRIPTION DRUG MONITORING REPORT IN PATIENT LESVIA: No Prescriptions: Acetaminophen/HYDROcodone [[place] 325-5 MG] 1 tab PO Q4H PRN #10 tablet PRN Reason: Pain Instructions: Ovarian Cyst, [id number] Referrals: Mahi Flowers MD [Primary Care Provider] - Samuel Gallardo MD [Physician] - Forms: ED Department Discharge Additional Instructions: You were seen in the emergency department today for vaginal bleeding and left- sided pelvic pain after intercourse. Work-up included blood work, urinalysis, pelvic ultrasound, and test. Results of your work-up indicate that you do have a hemorrhagic cyst on your left ovary which is likely the cause of your pain. As we discussed, the vaginal bleeding is likely your. Related to stopping the control pills 2 days ago. Your test was negative. Recommend that you take ibuprofen 600 mg every 6 hours routinely for the next few days. For pain not relieved by this, prescription for [place] has been sent. Take this only as prescribed. Do not work or drive for 12 hours after taking this as it can be sedating. Recommend calling Friday to set up a follow-up appoint with Dr. Gallardo. Return to ER for any new or worsening symptoms of concern. Sepsis Event Note (ED) - Evaluation Sepsis Screening Result: No Definite Risk
--- NOTE | 2020-04-09 09:20 | US ---
Pelvic ultrasound: Multiple real-time images of the pelvis were obtained transvaginally. Comparison: Prior pelvic ultrasound study of 03/27/20. Findings: Uterus is anteverted. Nabothian cysts are noted. Endometrial thickness is 7.1 mm. Follicles are seen within both ovaries. There is a 1.9 cm hemorrhagic area within the right ovary which is believed to be physiologic. Minimal free fluid is seen within the cul-de-sac. Measurements: Uterus: Length 8.2 cm, AP height 3.8 cm, transverse width 4.1 cm Right ovary: 2.5 x 1.1 x 1.4 cm Left ovary: 3.2 x 1.6 x 1.8 cm Impression: 1. 1.9 cm hemorrhagic cyst within the left ovary believed to be physiologic. 2. Other findings believed to be incidental as noted above. Nothing acute is seen. Diagnostic code #2 I agree with preliminary report from [facility], finalized on 04/08/20, 9:13 PM FAMILY EDUCATOR
== END 2020-04-08 21:25 | disposition home or self-care (01) ==
LOC: JD.ED 18:29
DX: N83.202 Unspecified ovarian cyst, left side (principal); F17.210 Nicotine dependence, cigarettes, uncomplicated; Z88.1 Allergy status to other antibiotic agents; Z88.8 Allergy status to other drugs, medicaments and biological substances; Z91.041 Radiographic dye allergy status
CPT/HCPCS: 36415; 76830; 80053; 81001; 81025; 85025; 86140; 96374; 96375; 96376; 99284; J1170; J1885; J2405; J7030

== ENCOUNTER 2020-06-04 15:14 | Emergency (ER) | payer BC ==
[2020-06-04] MEDS ORDERED: HYDROmorphone 0.5 MG/0.5 ML Syringe IVPUSH ONE (16:25)
[2020-06-04] MEDS ORDERED: Ondansetron 4 MG/2 ML SDV IVPUSH ONE (16:25)
[2020-06-04] MEDS ORDERED: Sodium Chloride 0.9% 10 ML Syringe FLUSH PRN (16:26)
--- NOTE | 2020-06-04 16:52 | EDM.PDOC ---
ED HPI GENERAL MEDICAL PROBLEM - General Chief Complaint: CONFERENCE INTERPRETER Problem Stated Complaint: VAGINAL BLEEDING/CYST Time Seen by Provider: 06/04/20 16:26 Source of Information: Reports: Patient, RN Notes Reviewed History Limitations: Reports: No Limitations - History of Present Illness INITIAL COMMENTS - FREE TEXT/NARRATIVE: Patient is a 29-year-old female presenting to the emergency department with complaints of pelvic cramping worse on the left than the right as well as vaginal bleeding. She states that she is not due for her period for another 10 days, however upon waking late this morning she found blood beneath her in the sheets and through her underwear. She does have a known left ovarian cyst for which she has been seeing her CONFERENCE INTERPRETER, Dr. Buchanan. He is supposed to follow-up with her in June for a repeat ultrasound. She had an episode similar to this back in March and this is when that ovarian cyst was found. She states that she has had no pain since that time until today. When going to bed last night, she felt well. She states that she is trying to get so is a possibility, however the first day of her last menstrual period was 15 May. abd Pain Score (Numeric/FACES): 7 - Related Data Allergies Allergy/AdvReac Type Severity Reaction Status Date / Time azithromycin Allergy Hives Verified 06/04/20 15:26 prochlorperazine Allergy Itching Verified 06/04/20 15:26 [From Compazine] iv contrast Allergy Chest Uncoded 06/04/20 15:26 Presssure Home Meds: Home Meds . [No Known Home Meds] 06/04/20 [History] Past Medical History HEENT History: Reports: Other (See Below) Other HEENT History: dental issues Gastrointestinal History: Reports: Irritable Bowel Syndrome Genitourinary History: Reports: UTI, Recurrent CONFERENCE INTERPRETER History: Reports: Neurological History: Reports: Migraines - Infectious Disease History Infectious Disease History: Reports: Chicken Pox - Past Surgical History GI Surgical History: Reports: Cholecystectomy Female Surgical History: Reports: Section Social & Family History - Tobacco Use Tobacco Use Status *Q: Current Every Day Tobacco User Years of Tobacco use: 15 Packs/Tins Daily: 0.5 - Caffeine Use Caffeine Use: Reports: None - Recreational Drug Use Recreational Drug Use: No - Living Situation & Occupation Living situation: Reports: , with Significant Other (Boyfriend), with Family (2 kids) Occupation: Employed ([email or web address]) ED ROS GENERAL - Review of Systems Review Of Systems: See Below Constitutional: Reports: No Symptoms, Weight Gain. Denies: Fever, Chills, Weakness Respiratory: Reports: No Symptoms Cardiovascular: Reports: No Symptoms Endocrine: Reports: No Symptoms GI/Abdominal: Reports: No Symptoms : Reports: Irregular Menses, Pain (pelvic) Musculoskeletal: Reports: No Symptoms Skin: Reports: No Symptoms Neurological: Reports: No Symptoms Psychiatric: Reports: No Symptoms Hematologic/Lymphatic: Reports: No Symptoms Immunologic: Reports: No Symptoms ED EXAM, RENAL/ - Physical Exam Exam: See Below Exam Limited By: No Limitations General Appearance: Alert, WD/WN, No Apparent Distress Respiratory/Chest: No Respiratory Distress, Lungs Clear, Normal Breath Sounds, No Accessory Muscle Use, Chest Non-Tender Cardiovascular: Normal Peripheral Pulses, Regular Rate, Rhythm, No Edema, No Gallop, No JVD, No Murmur, No Rub GI/Abdominal: Normal Bowel Sounds, Soft, No Organomegaly, No Distention, No Abnormal Bruit, No Mass, Tender (suprapubic. Left worse than right.) Neurological: Alert, Oriented, CN II-XII Intact, Normal Cognition, Normal Gait, Normal Reflexes, No Motor/Sensory Deficits Psychiatric: Normal Affect, Normal Mood Skin Exam: Warm, Dry, Intact, Normal Color, No Rash Course - Vital Signs Last Recorded V/S: Last Vital Signs Temp 98.2 F 06/04/20 15:22 Pulse 88 06/04/20 18:45 Resp 16 06/04/20 18:45 BP 122/79 06/04/20 18:45 Pulse Ox 98 06/04/20 18:45 - Orders/Labs/Meds Orders: Active Orders 24 hr Category Date Time Status Transvaginal Non OB [US] Stat Exams 06/04/20 16:22 Taken Peripheral IV Insertion Adult [OM.PC] Stat Oth 06/04/20 16:26 Ordered Labs: Laboratory Tests 06/04/20 06/04/20 06/04/20 Range/Units 16:40 16:40 17:10 WBC 10.14 H (3.98-10.04) K/mm3 RBC 4.03 (3.98-5.22) M/mm3 Hgb 11.8 (11.2-15.7) gm/dl Hct 37.1 (34.1-44.9) % MCV 92.1 (79.4-94.8) fl MCH 29.3 (25.6-32.2) pg MCHC 31.8 L (32.2-35.5) g/dl RDW Std Deviation 52.4 H (36.4-46.3) fL Plt Count 288 (182-369) K/mm3 MPV 9.6 (9.4-12.3) fl Neut % (Auto) 74.2 H (34.0-71.1) % Lymph % (Auto) 18.0 L (19.3-51.7) % [place] % (Auto) 4.0 L (4.7-12.5) % Eos % (Auto) 3.5 (0.7-5.8) Baso % (Auto) 0.2 (0.1-1.2) % Neut # (Auto) 7.52 H (1.56-6.13) K/mm3 Lymph # (Auto) 1.83 (1.18-3.74) K/mm3 [place] # (Auto) 0.41 H (0.24-0.36) K/mm3 Eos # (Auto) 0.35 (0.04-0.36) K/mm3 Baso # (Auto) 0.02 (0.01-0.08) K/mm3 Sodium 144 (136-145) mEq/L Potassium 3.6 (3.5-5.1) mEq/L Chloride 109 H (98-107) mEq/L Carbon Dioxide 26 (21-32) mEq/L Anion Gap 12.6 (5-15) BUN 12 (7-18) mg/dL Creatinine 0.9 (0.55-1.02) mg/dL Est Cr Clr Drug Dosing 78.21 mL/min Estimated GFR (MDRD) > 60 (>60) mL/min BUN/Creatinine Ratio 13.3 L (14-18) Glucose 79 (74-106) mg/dL Calcium 8.3 L (8.5-10.1) mg/dL Total Bilirubin 0.6 (0.2-1.0) mg/dL AST 14 L (15-37) U/L ALT 22 (14-59) U/L Alkaline Phosphatase 52 (46-116) U/L Total Protein 6.4 (6.4-8.2) g/dl Albumin 3.3 L (3.4-5.0) g/dl Globulin 3.1 gm/dL Albumin/Globulin Ratio 1.1 (1-2) HCG, Quant 1.0 mIU/mL Urine Color Yellow (Yellow) Urine Appearance Clear (Clear) Urine pH 7.0 (5.0-8.0) Ur Specific [place] > or = 1.030 (1.005-1.030) Urine Protein Negative (Negative) Urine Glucose (UA) Negative (Negative) Urine Ketones Trace H (Negative) Urine Occult Blood 2+ H (Negative) Urine Nitrite Negative (Negative) Urine Bilirubin Negative (Negative) Urine Urobilinogen 0.2 (0.2-1.0) Ur Leukocyte Esterase Negative (Negative) Urine RBC 10-20 H (0-5) /hpf Urine WBC 0-5 (0-5) /hpf Ur Squamous Epith Cells 5-10 H (0-5) /hpf Urine Bacteria Few (FEW) /hpf Urine Mucus Many H (FEW) /hpf Meds: Medications Discontinued Medications Generic Name Dose Route Start Last Admin Trade Name Freq PRN Reason Stop Dose Admin Hydromorphone HCl 0.5 mg 06/04/20 16:25 06/04/20 16:44 Dilaudid IVPUSH 06/04/20 16:26 0.5 mg ONETIME ONE Administration Ondansetron HCl 4 mg 06/04/20 16:25 06/04/20 16:44 Zofran IVPUSH 06/04/20 16:26 4 mg ONETIME ONE Administration Sodium Chloride 10 ml 06/04/20 16:26 06/04/20 16:44 Saline Flush FLUSH 10 ml ASDIRECTED PRN Administration Keep Vein Open - Re-Assessments/Exams Free Text/Narrative Re-Assessment/Exam: 06/04/20 18:25 Hematology was grossly unremarkable. Urinalysis negative for infection but did show occult blood likely related to vaginal bleeding. Transvaginal ultrasound is stable from the ultrasound completed on March. Impression as follows . 1. No acute findings of the pelvis. 2. Simple 18 mm left ovarian cyst. Stable in appearance. No torsion. 3. Small subserous L anterior low uterine segment 9 mm fibroid. Stable since 03/27/2020. 4. No free pelvic fluid. 5. Cervical nabothian cyst. Patient states that when she is a bathroom there was minimal bleeding at this time. We will discharge her home with instructions to follow-up with Dr. Gallardo's office tomorrow to discuss today's occurrences and for ongoing management. She does have pain medications at home left from her visit in March. Discharge instructions as documented. Departure - Departure Time of Disposition: 18:25 Disposition: Home, Self-Care 01 Condition: Good Clinical Impression: Vaginal bleeding Ovarian cyst Qualifiers: Laterality: left Qualified Code(s): N83.202 - Unspecified ovarian cyst, left side - Discharge Information *PRESCRIPTION DRUG MONITORING PROGRAM REVIEWED*: No *COPY OF PRESCRIPTION DRUG MONITORING REPORT IN PATIENT LESVIA: No Instructions: Ovarian Cyst, [id number] Referrals: Mahi Flowers MD [Primary Care Provider] - Samuel Gallardo MD [Physician] - Forms: ED Department Discharge Additional Instructions: You were seen in the emergency department today for acute onset of vaginal bleeding as well as cramping. Work-up included blood work, urinalysis, test, and a transvaginal ultrasound. Results of your work-up were f ound to be overall normal. test was negative. Hemoglobin levels are normal. Pelvic ultrasound is stable when compared to the ultrasound completed in March. Recommend that you contact Dr. Gallardo's office tomorrow morning to discuss today's occurrences. You may use the pain medications that you are prescribed in March as needed for pain. If anything should worsen, please not hesitate to return to the emergency department. Sepsis Event Note (ED) - Evaluation Sepsis Screening Result: No Definite Risk - Focused Exam Vital Signs: Vital Signs Temp Pulse Resp BP Pulse Ox 06/04/20 18:45 88 16 122/79 98 06/04/20 15:22 98.2 F 61 18 112/67 100 - My Orders Last 24 Hours: My Active Orders 06/04/20 16:22 Transvaginal Non OB [US] Stat 06/04/20 16:26 Peripheral IV Insertion Adult [OM.PC] Stat - Assessment/Plan Last 24 Hours: My Active Orders 06/04/20 16:22 Transvaginal Non OB [US] Stat 06/04/20 16:26 Peripheral IV Insertion Adult [OM.PC] Stat
--- NOTE | 2020-06-05 11:17 | US ---
Pelvic ultrasound: Multiple real-time images were obtained transabdominally. Comparison: Prior pelvic ultrasound study of 03/27/20. Findings: Uterus is anteverted. There appears to be a small subserosal fibroid within the anterior lower uterine segment measuring slightly less than 1 cm. Several nabothian cysts are noted. Endometrial thickness is normal at 7 mm. No free fluid is seen within the pelvis. Right and left ovaries appear within normal limits. Measurements: Uterus: Length 9.0 cm, AP height 3.7 cm,transverse width 4.7 cm Right ovary: 2.4 x 1.8 x 1.5 cm Left ovary: 3.1 x 1.8 x 2.2 cm Impression: 1. Small subserosal uterine fibroid measuring slightly less than 1 cm. 2. Incidental nabothian cysts. 3. Nothing acute is seen on pelvic ultrasound study. Diagnostic code #2 I agree with preliminary report from [facility], finalized on 06/04/20, 7:14 PM CECILIA ADAMS
== END 2020-06-04 18:45 | disposition home or self-care (01) ==
LOC: JD.ED 15:14
DX: N83.202 Unspecified ovarian cyst, left side (principal); N93.9 Abnormal uterine and vaginal bleeding, unspecified; Z88.1 Allergy status to other antibiotic agents; Z88.8 Allergy status to other drugs, medicaments and biological substances; Z91.041 Radiographic dye allergy status; Z72.0 Tobacco use
CPT/HCPCS: 36415; 76830; 80053; 81001; 84702; 85025; 96374; 96375; 99284; J1170; J2405

== ENCOUNTER 2020-06-09 07:14 | Day surgery (SDC) | payer BC ==
--- NOTE | 2020-06-08 12:35 | PCM.PREANE ---
Preanesthetic Assessment - Procedure Proposed Procedure: Laparoscopy, Ovarian Cystectomy, Chromotubation, Lysis of adhesions. - Anesthesia/Transfusion/Family Hx Anesthesia History: Prior Anesthesia Without Reaction Family History of Anesthesia Reaction: No Transfusion History: No Prior Transfusion(s) Intubation History: Unknown - Review of Systems General: No Symptoms, Fatigue Pulmonary: No Symptoms (Smoker: 1/2 ppd times 10 yrs. ETOH: occasionally) Cardiovascular: No Symptoms, Palpitations (energy drink ingestion/anxiety) Gastrointestinal: No Symptoms, Abdominal Pain (left sided lower pelvic pain: 0 /10), Decreased Appetite, Diarrhea Neurological: No Symptoms, Headache (migraines) Other: Reports: Neck Pain (Cervical sprain history of.), Depression, Anxiety - Physical Assessment NPO Status Date: 06/08/20 NPO Status Time: 23:30 Vital Signs: HR:62 Sat:99% Temp:97.8 B/P:105/62 Resp:16 Height: 1.6 m Weight: 62 kg ASA Class: 2 Mental Status: Alert & Oriented x3 Airway Class: Mallampati = 2 Dentition: Reports: Dentures (upper), Edentulous, Missing Tooth/Teeth (poor dentition), Caries Thyro-Mental Finger Breadths: 3 Mouth Opening Finger Breadths: 3 ROM/Head Extension: Full Lungs: Clear to Auscultation, Normal Respiratory Effort Cardiovascular: Regular Rate, Regular Rhythm, No Murmurs - Lab Values: All labs reviewed and noted and within acceptable ranges to proceed with scheduled procedure. - Allergies Allergies/Adverse Reactions: Allergies Allergy/AdvReac Type Severity Reaction Status Date / Time azithromycin Allergy Hives Verified 06/08/20 14:37 prochlorperazine Allergy Itching Verified 06/08/20 14:37 [From Compazine] iv contrast Allergy Chest Uncoded 06/08/20 14:37 Presssure - Anesthesia Plan Pre-Op Medication Ordered: None - Acknowledgements Anesthesia Type Planned: General Anesthesia Pt an Appropriate Candidate for the Planned Anesthesia: Yes Alternatives and Risks of Anesthesia Discussed w Pt/Guardian: Yes Pt/Guardian Understands and Agrees with Anesthesia Plan: Yes PreAnesthesia Questionnaire HEENT History: Reports: Other (See Below) Other HEENT History: dental issues Gastrointestinal History: Reports: Irritable Bowel Syndrome Genitourinary History: Reports: UTI, Recurrent ACTIVITY AID History: Reports: Neurological History: Reports: Migraines - Infectious Disease History Infectious Disease History: Reports: Chicken Pox - Past Surgical History GI Surgical History: Reports: Cholecystectomy Female Surgical History: Reports: Section - HOME MEDS Home Medications: Home Meds . [No Known Home Meds] 06/04/20 [History] - CURRENT (IN HOUSE) MEDS Current Meds: Current Medications Lactated Ringer's (Ringers, Lactated) 1,000 mls @ 125 mls/hr IV ASDIRECTED RADHA Stop: 06/09/20 23:00 Lidocaine/Sodium Bicarbonate (Buffered Lidocaine 1% In Ns 8.4%) 0.25 ml IDERM ONETIME PRN PRN Reason: Prior to IV Start Stop: 06/09/20 18:00 Sodium Chloride (Saline Flush) 10 ml FLUSH ASDIRECTED PRN PRN Reason: Keep Vein Open Stop: 06/09/20 18:00
[~2020-06-09 07:14] MED LIST: Dexamethasone 4 MG/ML 5 ML MDV ONE; HYDROmorphone 0.5 MG/0.5 ML Syringe ONE; Ketorolac 30 MG/ML SDV ONE; Lactated Ringers 1,000 ML IV SCH; Lactated Ringers 1,000 ML ONE; Lidocaine 1% 4 ML ONE; Lidocaine 1%/Sod Bicarbonate in NS 8.4% 1 ML Syringe IDERM PRN; Midazolam 1 MG/ML 2 ML SDV ONE; Ondansetron 4 MG/2 ML SDV ONE; Propofol 200 MG/20 ML SDV ONE; Rocuronium 50 MG/5 ML Vial ONE; Sodium Chloride 0.9% 10 ML Syringe FLUSH PRN; fentaNYL 250 MCG/5 ML SDV ONE
[2020-06-09] MEDS ORDERED: Methylene Blue 50 MG/10 ML Ampule ONE (07:25)
[2020-06-09] MEDS ORDERED: Bupivacaine 0.5% 30 ML SDV ONE (07:25)
[2020-06-09] MEDS ORDERED: Dextrose 5% in Water 100 ML ONE (07:26)
[2020-06-09] MEDS ORDERED: Midazolam 1 MG/ML 2 ML SDV IVPUSH PRN (08:28)
[2020-06-09] MEDS ORDERED: Ondansetron 4 MG/2 ML SDV IVPUSH PRN (08:28)
[2020-06-09] MEDS ORDERED: HYDROmorphone 0.5 MG/0.5 ML Syringe IVPUSH PRN (08:28)
[2020-06-09] MEDS ORDERED: ePHEDrine 50 MG/ML SDV IVPUSH PRN (08:28)
[2020-06-09] MEDS ORDERED: diphenhydrAMINE 50 MG/ML SDV IVPUSH PRN (08:28)
[2020-06-09] MEDS ORDERED: fentaNYL 250 MCG/5 ML SDV IVPUSH PRN (08:29)
[2020-06-09] MEDS ORDERED: Albuterol 0.083% 2.5 MG/3 ML Neb Soln NEB PRN (08:29)
--- NOTE | 2020-06-09 09:19 | PCM.POSTAN ---
POST ANESTHESIA ASSESSMENT - MENTAL STATUS Mental Status: Alert - VITAL SIGNS Vital Signs: Last Vital Signs Temp 97.4 06/09/20911 Pulse 79 06/09/20911 Resp 9 06/09/20911 BP 98/54 06/09/20911 Pulse Ox 100% 06/09/20911 - RESPIRATORY Respiratory Status: Respiratory Rate WNL, Airway Patent, O2 Saturation Stable, Supplemental Oxygen - CARDIOVASCULAR CV Status: Pulse Rate WNL, Blood Pressure Stable - GASTROINTESTINAL GI Status: No Symptoms - POST OP HYDRATION Hydration Status: Adequate & Stable
--- NOTE | 2020-06-09 09:38 | PCM.OPNOTE ---
- General Post-Op/Procedure Note Date of Surgery/Procedure: 06/09/20 Operative Procedure(s): Laparoscopy with lysis of adhesions and right ovarian cystotomy, attempted chromopertubation Findings: Grossly normal-appearing uterus and bilateral fallopian tubes. The right ovary had a simple appearing cyst that was measuring approximately 1 cm and was ruptured with use of a grasping instrument. There is no significant cyst wall that was able to be removed. The left ovary was grossly normal in appearance. There were some thin filmy adhesions near the left ovary that were taken down with blunt traction. There were some omental adhesions to the anterior abdominal wall near the umbilicus and these were taken down with blunt traction as well. The visualized portions of the liver were grossly normal. The appendix was normal in appearance. The visualized portions of the intestines were normal. Pre Op Diagnosis: Female pelvic pain, ovarian cyst and female infertility Post-Op Diagnosis: Same with ovarian cyst on the right ovary Anesthesia Technique: General ET Tube Primary Surgeon: Samuel Gallardo Anesthesia Provider: Shasha Quezada Teacher Specialist: Jeremías Buchanan Reason Teacher Specialist Was Necessary: Patient safety and reduction of morbidity and mortality Role of Teacher Specialist: Use of laparoscopic instruments for completion of the procedure Pathology: None Fluid Replacement, Intraop: 1,000 Output, Urine Amount: 10 EBL in mLs: 10 Complications: None Condition: Good Free Text/Narrative:: The patient was seen in the preoperative holding area and risks, benefits, indications, and alternatives of the procedure were reviewed with the patient and she desired to proceed with a diagnostic laparoscopy, ovarian cystectomy of affected side, possible oophorectomy of affected side, possible lysis of adhesions and chromopertubation. Consents were reviewed. The patient was taken back to the OR and given general anesthesia with an endotracheal tube which was placed without difficulty. She was placed in dorsal lithotomy position using Yellofin stirrups. She was prepped and draped in normal sterile fashion. A Mathew catheter was placed without difficulty. Weighted speculum and right angle retractor were used to visualize the cervix and the anterior lip of the cervix was grasped with a single-tooth tenaculum. The cervix was then dilated with a uterine dilator and the uterine fundus sounded at 6 cm. The uterine manipulator was then inserted into the uterine cavity and the balloon was inflated with 5 mL of saline. Attention was then turned to her umbilicus where a previous laparoscopic scar was visualized. This was injected with 0.5% Marcaine and a 5 mm stab incision was made with a scalpel and a Veress needle was then inserted through the incision. The gas was turned on, with an opening pressure of 4 mmHg. Pneumoperitoneum was continued until 15 mmHg pressure. A 5 mm trocar was then inserted under direct visualization through the incision without difficulty. A global view of the abdomen was taken and noted to have some adhesions near the inferior portion of the umbilicus. Attention was then turned to the right lower quadrant of the abdomen and an avascular space was identified and the skin was injected with local anesthetic. A skin incision was made using a scalpel. A 5 mm trocar was then inserted under direct visualization with laparoscope. A global view of the abdomen was then taken and noted to be overall normal in appearance. The intestines, visualized portions of the liver and upper abdomen were overall normal appearance. The uterus was then inspected and felt to be overall normal in appearance. The fallopian tubes were normal bilaterally. The the right ovary was noted to have a simple cyst that was measuring approximately 1 cm that was ruptured when grasped with a grasping forceps. The cyst wall was not able to be identified for removal and this was left in place. The remainder of the right ovary was normal in appearance. The left ovary was grossly normal in appearance but there was some thin, filmy adhesions over the ovary. The filmy adhesions were taken down with blunt traction. The chromopertubation portion of the procedure was then attempted and on injection of the methylene blue there was noted to be extravasation of the methylene blue into the uterine fundus and to the broad ligaments bilaterally. It was felt that the uterine manipulator tip was inserted too far into the uterine fundus and so the uterine manipulator was retracted slightly and again attempt was made but there was no spill from the bilateral fallopian tubes and there was more extravasation into the uterine fundus. The chromopertubation portion was discontinued at this time. The abdomen was then further explored and the omental adhesions to the anterior abdominal wall were taken down with blunt traction. There was also notation of a omental adhesion to the anterior abdominal wall superior to the umbilical port that was also taken down with blunt traction. These areas were hemostatic after blunt dissection. The case was completed at this time. The gas was then evacuated from the peritoneum and trocars removed. These were closed using 4-0 Monocryl suture and Dermabond. The uterine manipulator was removed without difficulty. The case was completed at this time and all instruments were removed. The Mathew catheter was discontinued at this time. The patient was awoken from general anesthesia and taken to the PACU for recovery in stable condition. She will be discharged to home once she is able to meet all postoperative milestones including tolerating small amount of oral intake and liquids, ambulate without difficulty, her pain controlled with oral medications and able to void without difficulty. She will follow-up in the clinic in 2 weeks or earlier as needed. Sponge, lap, needle, and instrument counts were correct x 2. Samuel Gallardo MD 11:27 AM 06/09/2020 Review of images IMG 001: Left pelvis with visualization of the fallopian tube and uterine fundus that is grossly normal in appearance. Small visualization of the distal desc ending colon that is grossly normal in appearance. No significant adhesions noted. IMG 002: Right pelvis with visualization of the fallopian tube and uterine fundus that is grossly normal in appearance. No significant adhesions noted. IMG 003: Additional image of the right fallopian tube that is grossly normal in appearance. Small portion of the right ovary that was grossly normal in appearance with area of the ovarian cyst that had been ruptured with blunt traction near the middle of the images. IMG 004: Left ovary grossly normal in appearance without any evidence of cysts or other abnormalities present. Small amount of adhesion to the ovary from the pelvic sidewall. IMG 005: Additional image of the left ovary without any evidence of significant ovarian cyst that had been seen on ultrasound. The filmy adhesion had been bluntly dissected prior to this image. IMG 006: Grossly normal-appearing appendix as well as other areas of normal- appearing intestine IMG 007: Right upper quadrant of the abdomen with grossly normal-appearing liver with surgically absent gallbladder IMG 008: Superior midline omental adhesions to the anterior abdominal wall being taken down IMG 009: Error image with no significant abnormalities noted, additional view of the appendix obtained on this image
[2020-06-09] MEDS ORDERED: Acetaminophen/oxyCODONE 325-5 MG Tab PO ONE (10:00)
--- NOTE | 2020-06-09 11:02 | PCM48HPAN ---
Post Anesthesia Note - EVALUATION WITHIN 48HRS OF ANESTHETIC Vital Signs in Normal Range: Yes Patient Participated in Evaluation: Yes Respiratory Function Stable: Yes Airway Patent: Yes Cardiovascular Function Stable: Yes Hydration Status Stable: Yes Pain Control Satisfactory: Yes Nausea and Vomiting Control Satisfactory: Yes Mental Status Recovered: Yes Vital Signs: Last Vital Signs Temp 36.4 C 06/09/20 10:46 Pulse 68 06/09/20 10:46 Resp 16 06/09/20 10:46 BP 101/56 L 06/09/20 10:46 Pulse Ox 99 06/09/20 10:46
== END 2020-06-09 12:00 | disposition home or self-care (01) ==
LOC: JD.SDS 07:14
PROVIDERS: ATTEND Obstetrics & Gynecology
DX: N83.201 Unspecified ovarian cyst, right side (principal); N97.9 Female infertility, unspecified; F17.210 Nicotine dependence, cigarettes, uncomplicated; G43.909 Migraine, unspecified, not intractable, without status migrainosus; Z88.1 Allergy status to other antibiotic agents; Z88.8 Allergy status to other drugs, medicaments and biological substances; Z98.890 Other specified postprocedural states; Z01.812 Encounter for preprocedural laboratory examination; Z20.828 Contact with and (suspected) exposure to other viral communicable diseases
CPT/HCPCS: 49322; 58350; A9270; J1100; J1170; J1885; J2250; J2370; J2405; J2704; J2710; J3010; J3490; J7120; 00840

== ENCOUNTER 2021-01-15 13:05 | Emergency (ER) | payer BC, MEDICAID ==
[2021-01-15] MEDS ORDERED: Sodium Chloride 0.9% 10 ML Syringe FLUSH PRN (13:28)
[2021-01-15] MEDS ORDERED: Ondansetron 4 MG/2 ML SDV IVPUSH ONE (13:28)
[2021-01-15] MEDS ORDERED: HYDROmorphone 1 MG/ML Syringe IVPUSH STA (13:28)
[2021-01-15] MEDS ORDERED: Sodium Chloride 0.9% 1,000 ML IV SCH (13:30)
--- NOTE | 2021-01-15 13:35 | EDM.PDOC ---
ED HPI GENERAL MEDICAL PROBLEM - General Chief Complaint: Abdominal Pain Stated Complaint: ABDOMINAL PAIN Time Seen by Provider: 01/15/21 13:13 Source of Information: Reports: Patient, RN Notes Reviewed History Limitations: Reports: No Limitations - History of Present Illness INITIAL COMMENTS - FREE TEXT/NARRATIVE: Patient is a 30-year-old female who presents to the ER for her right lower quadrant abdominal pain. 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 She states that she did not blackout or otherwise. She is not having any vaginal concerns with any sort of bleeding or discharge. States that her last m enstrual period was at the beginning of this month and she is regular in that regard so she is denying any chance of . Patient did have a bowel movement this morning that was normal for her. She has had her gallbladder removed but still retains her appendix. She also states she has a history of ovarian cysts, and had one removed at the beginning of this last year by Dr. Gallardo. She is not had any fevers or chills, cough or shortness of breath, she did have some nausea when the pain hit but no actual vomiting or any sort of diarrhea. Patient states that the pain seems to worsen with movement, and with direct palpation of her lower abdomen. Patient states she sees felt pain like this only once in her life when she had a history of her ovarian cysts. She has not had COVID-19, she has not received a COVID-19 vaccine, nor she been around anyone that she is known to be sick. Lower Abdomen Pain Score (Numeric/FACES): 6 - Related Data Allergies Allergy/AdvReac Type Severity Reaction Status Date / Time azithromycin Allergy Severe Hives Verified 01/15/21 13:18 prochlorperazine Allergy Severe Itching Verified 01/15/21 13:18 [From Compazine] iv contrast Allergy Unknown Chest Uncoded 06/09/20 08:13 Presssure Home Meds: Home Meds Ibuprofen 600 mg PO Q6H PRN #60 tablet 06/09/20 [Rx] Past Medical History HEENT History: Reports: Otitis Media, Other (See Below) Other HEENT History: dental issues, has dentures Respiratory History: Reports: Other (See Below) Other Respiratory History: pneumonia Gastrointestinal History: Reports: Irritable Bowel Syndrome, Other (See Below) Other Gastrointestinal History: nausea, abdominal wall pain Genitourinary History: Reports: UTI, Recurrent, Other (See Below) Other Genitourinary History: dysuria [employer] SU[employer] History: Reports: Neurological History: Reports: Migraines Psychiatric History: Reports: Anxiety, Depression Endocrine/Metabolic History: Reports: Vitamin D Deficiency - Past Surgical History GI Surgical History: Reports: Cholecystectomy Female Surgical History: Reports: Section Other Female Surgeries/Procedures: x 2 Social & Family History - Tobacco Use Tobacco Use Status *Q: Current Every Day Tobacco User Years of Tobacco use: 12 Packs/Tins Daily: 0.5 - Caffeine Use Caffeine Use: Reports: Soda - Recreational Drug Use Recreational Drug Type: Reports: Marijuana/Hashish - Living Situation & Occupation Living situation: Reports: , with Significant Other (Boyfriend), with Family (2 kids) Occupation: Employed ([employer]) ED ROS GENERAL - Review of Systems Review Of Systems: Comprehensive ROS is negative, except as noted in HPI. ED EXAM, GI/ABD - Physical Exam Exam: See Below Exam Limited By: No Limitations General Appearance: Alert, WD/WN, No Apparent Distress Respiratory/Chest: No Respiratory Distress, Lungs Clear, Normal Breath Sounds, No Accessory Muscle Use, Chest Non-Tender Cardiovascular: Normal Peripheral Pulses, Regular Rate, Rhythm, No Edema GI/Abdominal Exam: Normal Bowel Sounds, Soft, No Distention, No Mass, Tender (RLQ mainly, worse with direct palpation) Extremities: Normal Inspection, Normal Capillary Refill Neurological: Alert, Oriented, Normal Cognition, No Motor/Sensory Deficits Psychiatric: Normal Affect, Normal Mood Skin Exam: Warm, Dry, Intact, Normal Color, No Rash Course - Vital Signs Last Recorded V/S: Last Vital Signs Temp 97.8 F 01/15/21 13:21 Pulse 95 01/15/21 13:21 Resp 20 01/15/21 13:21 BP 117/78 01/15/21 13:21 Pulse Ox 99 01/15/21 13:21 - Orders/Labs/Meds Orders: Active Orders 24 hr Category Date Time Status Peripheral IV Care [RC] . DIRECTED Care 01/15/21 13:29 Ordered Magnesium Citrate [Citrate of Magnesia] Med 01/15/21 16:13 Once 296 ml PO ONETIME ONE Sodium Chloride 0.9% [Normal Saline] 1,000 ml Med 01/15/21 13:30 Ordered IV ASDIRECTED Sodium Chloride 0.9% [Saline Flush] Med 01/15/21 13:28 Ordered 10 ml FLUSH ASDIRECTED PRN Peripheral IV Insertion Adult [OM.PC] Stat Oth 01/15/21 13:28 Ordered Medication Orders Sodium Chloride (Normal Saline) 1,000 mls @ 999 mls/hr IV ASDIRECTED RADHA Last Admin: 01/15/21 14:21 Dose: 999 mls/hr Documented by: STEPHANIE Sodium Chloride (Sodium Chloride 0.9% 10 Ml Syringe) 10 ml FLUSH ASDIRECTED PRN PRN Reason: Keep Vein Open Last Admin: 01/15/21 14:15 Dose: 10 ml Documented by: STEPHANIE Labs: Laboratory Tests 01/15/21 01/15/21 01/15/21 Range/Units 13:37 13:50 13:50 WBC (3.98-10.04) K/mm3 RBC (3.98-5.22) M/mm3 Hgb (11.2-15.7) gm/dl Hct (34.1-44.9) % MCV (79.4-94.8) fl MCH (25.6-32.2) pg MCHC (32.2-35.5) g/dl RDW Std Deviation (36.4-46.3) fL Plt Count (182-369) K/mm3 MPV (9.4-12.3) fl Neut % (Auto) (34.0-71.1) % Lymph % (Auto) (19.3-51.7) % [place] % (Auto) (4.7-12.5) % Eos % (Auto) (0.7-5.8) Baso % (Auto) (0.1-1.2) % Neut # (Auto) (1.56-6.13) K/mm3 Lymph # (Auto) (1.18-3.74) K/mm3 [place] # (Auto) (0.24-0.36) K/mm3 Eos # (Auto) (0.04-0.36) K/mm3 Baso # (Auto) (0.01-0.08) K/mm3 Sodium (136-145) mEq/L Potassium (3.5-5.1) mEq/L Chloride (98-107) mEq/L Carbon Dioxide (21-32) mEq/L Anion Gap (5-15) BUN (7-18) mg/dL Creatinine (0.55-1.02) mg/dL Est Cr Clr Drug Dosing mL/min Estimated GFR (MDRD) (>60) mL/min BUN/Creatinine Ratio (14-18) Glucose (70-99) mg/dL Calcium (8.5-10.1) mg/dL Total Bilirubin (0.2-1.0) mg/dL AST (15-37) U/L ALT (14-59) U/L Alkaline Phosphatase (46-116) U/L C-Reactive Protein (<1.0) mg/dL Total Protein (6.4-8.2) g/dl Albumin (3.4-5.0) g/dl Globulin gm/dL Albumin/Globulin Ratio (1-2) Lipase (73-393) U/L Urine Color Light yellow (Yellow) Urine Appearance Slt cloudy H (Clear) Urine pH 6.0 (5.0-8.0) Ur Specific [place] 1.025 (1.005-1.030) Urine Protein Negative (Negative) Urine Glucose (UA) Negative (Negative) Urine Ketones Negative (Negative) Urine Occult Blood Negative (Negative) Urine Nitrite Negative (Negative) Urine Bilirubin Negative (Negative) Urine Urobilinogen 0.2 (0.2-1.0) Ur Leukocyte Esterase Negative (Negative) Urine RBC 0-5 (0-5) /hpf Urine WBC 0-5 (0-5) /hpf Ur Squamous Epith Cells 0-5 (0-5) /hpf Urine Bacteria Few (FEW) /hpf Urine Mucus Few (FEW) /hpf Urine HCG, Qual Negative (NEGATIVE) SARS-CoV-2 RNA (JACOBY) Negative (NEGATIVE) 01/15/21 01/15/21 Range/Units 13:50 13:50 WBC 13.04 H (3.98-10.04) K/mm3 RBC 3.99 (3.98-5.22) M/mm3 Hgb 11.5 (11.2-15.7) gm/dl Hct 36.2 (34.1-44.9) % MCV 90.7 (79.4-94.8) fl MCH 28.8 (25.6-32.2) pg MCHC 31.8 L (32.2-35.5) g/dl RDW Std Deviation 51.1 H (36.4-46.3) fL Plt Count 319 (182-369) K/mm3 MPV 9.9 (9.4-12.3) fl Neut % (Auto) 84.0 H (34.0-71.1) % Lymph % (Auto) 9.9 L (19.3-51.7) % [place] % (Auto) 4.7 (4.7-12.5) % Eos % (Auto) 1.0 (0.7-5.8) Baso % (Auto) 0.2 (0.1-1.2) % Neut # (Auto) 10.96 H (1.56-6.13) K/mm3 Lymph # (Auto) 1.29 (1.18-3.74) K/mm3 [place] # (Auto) 0.61 H (0.24-0.36) K/mm3 Eos # (Auto) 0.13 (0.04-0.36) K/mm3 Baso # (Auto) 0.02 (0.01-0.08) K/mm3 Sodium 141 (136-145) mEq/L Potassium 4.8 (3.5-5.1) mEq/L Chloride 106 (98-107) mEq/L Carbon Dioxide 25 (21-32) mEq/L Anion Gap 14.8 (5-15) BUN 11 (7-18) mg/dL Creatinine 0.8 (0.55-1.02) mg/dL Est Cr Clr Drug Dosing 83.51 mL/min Estimated GFR (MDRD) > 60 (>60) mL/min BUN/Creatinine Ratio 13.8 L (14-18) Glucose 71 (70-99) mg/dL Calcium 8.6 (8.5-10.1) mg/dL Total Bilirubin 0.3 (0.2-1.0) mg/dL AST 21 (15-37) U/L ALT 22 (14-59) U/L Alkaline Phosphatase 58 (46-116) U/L C-Reactive Protein <0.2 (<1.0) mg/dL Total Protein 7.4 (6.4-8.2) g/dl Albumin 3.7 (3.4-5.0) g/dl Globulin 3.7 gm/dL Albumin/Globulin Ratio 1.0 (1-2) Lipase 122 (73-393) U/L Urine Color (Yellow) Urine Appearance (Clear) Urine pH (5.0-8.0) Ur Specific [place] (1.005-1.030) Urine Protein (Negative) Urine Glucose (UA) (Negative) Urine Ketones (Negative) Urine Occult Blood (Negative) Urine Nitrite (Negative) Urine Bilirubin (Negative) Urine Urobilinogen (0.2-1.0) Ur Leukocyte Esterase (Negative) Urine RBC (0-5) /hpf Urine WBC (0-5) /hpf Ur Squamous Epith Cells (0-5) /hpf Urine Bacteria (FEW) /hpf Urine Mucus (FEW) /hpf Urine HCG, Qual (NEGATIVE) SARS-CoV-2 RNA (JACOBY) (NEGATIVE) Meds: Medications Generic Name Dose Route Start Last Admin Trade Name Rashid PRN Reason Stop Dose Admin Sodium Chloride 1,000 mls @ 999 mls/hr 01/15/21 13:30 01/15/21 14:21 Normal Saline IV 999 mls/hr ASDIRECTED RADHA Administration Sodium Chloride 10 ml 01/15/21 13:28 01/15/21 14:15 Sodium Chloride 0.9% 10 Ml Syringe FLUSH 10 ml ASDIRECTED PRN Administration Keep Vein Open Discontinued Medications Generic Name Dose Route Start Last Admin Trade Name Rashid PRN Reason Stop Dose Admin Acetaminophen 650 mg 01/15/21 15:38 01/15/21 15:44 Acetaminophen 325 Mg Tab PO 01/15/21 15:39 650 mg NOW ONE Administration Diatrizoate Meglum/Diatrizoate Sod 90 ml 01/15/21 15:01 01/15/21 15:35 Diatrizoate Meglumine/Diatrizoate Sodium 37% 120 Ml Bottle PO 01/15/21 15:02 90 ml ONETIME ONE Administration Hydromorphone HCl 1 mg 01/15/21 13:28 01/15/21 14:23 Hydromorphone 1 Mg/Ml Syringe IVPUSH 01/15/21 13:29 1 mg ONETIME STA Administration Ondansetron HCl 4 mg 01/15/21 13:28 01/15/21 14:22 Ondansetron 4 Mg/2 Ml Sdv IVPUSH 01/15/21 13:29 4 mg ONETIME ONE Administration - Re-Assessments/Exams Free Text/Narrative Re-Assessment/Exam: 01/15/21 13:34 Patient presents to the ER for the evaluation of her lower abdominal pain. We will go ahead and get blood work, rule out , obtain an abdomen pelvis CT with oral contrast only as the patient states she has had a history of IV contrast allergy which results in tachycardia. Patient will get 1 mg IV Dilaudid, 4 mg IV Zofran, and some fluids for ongoing management. We will also do a coronavirus screen for further evaluation as well. 01/15/21 14:47 Patient's white count is modestly elevated at 13.04 with 87% neutrophils on the auto differential. Metabolic panel is essentially unremarkable, urinalysis is also negative for any sign of infection. 01/15/21 15:27 Coronavirus screen is negative for today's purposes. 01/15/21 16:[address] has come back, there is no free fluid or inflammatory change seen, appendix was seen and is of normal size. No mesenteric abnormalities were identified. There is mild increase stool throughout the colon, but no other acute abnormalities appreciated on the CT study of the abdomen. I did explain this to the patient, and she understood this time we will give her a bottle of magnesium citrate and discharge her home. Departure - Departure Time of Disposition: 16:15 Disposition: Home, Self-Care 01 Condition: Good Clinical Impression: Abdominal pressure Constipation Qualifiers: Constipation type: other constipation type Qualified Code(s): K59.09 - Other constipation - Discharge Information *PRESCRIPTION DRUG MONITORING PROGRAM REVIEWED*: No *COPY OF PRESCRIPTION DRUG MONITORING REPORT IN PATIENT LESVIA: No Instructions: Constipation, Adult, [id number] Referrals: PCP,None [Primary Care Provider] - Forms: ED Department Discharge Additional Instructions: You have been evaluated in the ED for abdominal pain/pressure. You had labs done at this visit along an abdomen pelvis CT with oral contrast; these did demonstrate that you are constipated. You have been given a bottle of magnesium citrate, please drink one half bottle, if you do not have a rather large bowel movement in the next few hours, continue with the last half bottle. Please note that you will have some mild abdomen cramping while using this me dication, and you may have some looser stools towards the end of use of this medication. No sign of ovarian cysts were identified at today's visit. There are no other major abnormalities appreciated on the CT scan, your appendix was visualized and is within normal limits. Laboratory evaluation demonstrated no focal abnormalities, your white count was a little bit elevated however sometimes this can happen in acute times of pain and/or stress. No obvious sign of any sort of bacterial infection was made apparent at today's visit. You have received IV fluid in the ED to help with rehydration. If you do not have resolution of your symptoms, please contact our clinic at [phone] and obtain an appoint with a family practice provider of your choice, or schedule an appointment with your primary care provider for ongoing management. Please return to the ED if your symptoms should change or worsen. Sepsis Event Note (ED) - Focused Exam Vital Signs: Vital Signs Temp Pulse Resp BP Pulse Ox 01/15/21 13:21 97.8 F 95 20 117/78 99 - My Orders Last 24 Hours: My Active Orders 01/15/21 13:28 Sodium Chloride 0.9% [Saline Flush] 10 ml FLUSH ASDIRECTED PRN Peripheral IV Insertion Adult [OM.PC] Stat 01/15/21 13:29 Peripheral IV Care [RC] . DIRECTED 01/15/21 13:30 Sodium Chloride 0.9% [Normal Saline] 1,000 ml IV ASDIRECTED 01/15/21 16:13 Magnesium Citrate [Citrate of Magnesia] 296 ml PO ONETIME ONE - Assessment/Plan Last 24 Hours: My Active Orders 01/15/21 13:28 Sodium Chloride 0.9% [Saline Flush] 10 ml FLUSH ASDIRECTED PRN Peripheral IV Insertion Adult [OM.PC] Stat 01/15/21 13:29 Peripheral IV Care [RC] . DIRECTED 01/15/21 13:30 Sodium Chloride 0.9% [Normal Saline] 1,000 ml IV ASDIRECTED 01/15/21 16:13 Magnesium Citrate [Citrate of Magnesia] 296 ml PO ONETIME ONE
[2021-01-15] MEDS ORDERED: Diatrizoate Meglumine/Diatrizoate Sodium 37% 120 ML Bottle PO ONE (15:01)
[2021-01-15] MEDS ORDERED: Acetaminophen 325 MG Tab PO ONE (15:38)
--- NOTE | 2021-01-15 15:56 | CT ---
CT abdomen and pelvis Technique: Multiple axial sections were obtained from above the dome of the diaphragm inferiorly through the pubic symphysis. Oral contrast was given which shows incomplete opacifications. No intravenous contrast was utilized. Reconstructed coronal and sagittal images were obtained. Comparison: No prior abdominal imaging is available. Findings: Visualized lung bases show nothing acute. Noncontrast appearance of the liver shows no focal parenchymal abnormality. Surgical clips are seen from prior cholecystectomy. Small amount of gastroesophageal reflux is seen into the distal esophagus. Spleen size is normal. Adrenal glands shows no discrete nodule. Kidneys show no abnormal calcifications. No discrete mass is seen within the kidneys. Pancreas shows no discrete abnormality. Abdominal aorta shows no aneurysm. No retroperitoneal adenopathy is seen. No mesenteric abnormalities are seen. No pelvic mass or adenopathy is seen. Minimal free fluid is seen within the pelvis believed to be physiologic. Appendix is seen which is normal in size. Mild increased stool is seen throughout the colon. No free fluid or inflammatory change is seen. Bone window settings were reviewed which appear within normal limits for the patient's age. Impression: 1. Increased stool throughout the colon. Small amount of gastroesophageal reflux is seen into the esophagus. 2. Nothing acute is otherwise appreciated on noncontrast CT study of the abdomen and pelvis. Diagnostic code #2
[2021-01-15] MEDS ORDERED: Magnesium Citrate Solution 296 ML Bottle PO ONE (16:13)
== END 2021-01-15 16:37 | disposition home or self-care (01) ==
LOC: JD.ED 13:05
DX: K59.09 Other constipation (principal); Z88.1 Allergy status to other antibiotic agents; Z88.8 Allergy status to other drugs, medicaments and biological substances; Z91.041 Radiographic dye allergy status; Z72.0 Tobacco use; Z20.822 Contact with and (suspected) exposure to COVID-19
CPT/HCPCS: 36415; 74176; 80053; 81001; 81025; 83690; 85025; 86140; 87635; 96374; 99284; A9270; J1170; J2405; J7030; Q9963; U0002

== ENCOUNTER 2021-02-15 13:52 | Emergency (ER) | payer MEDICAID ==
[2021-02-15] MEDS ORDERED: Sodium Chloride 0.9% 10 ML Syringe FLUSH PRN (15:13)
[2021-02-15] MEDS ORDERED: diphenhydrAMINE 50 MG/ML SDV IVPUSH ONE (15:13)
[2021-02-15] MEDS ORDERED: Ketorolac 30 MG/ML SDV IVPUSH ONE (15:13)
[2021-02-15] MEDS ORDERED: Metoclopramide 10 MG/2 ML SDV IVPUSH ONE (15:13)
--- NOTE | 2021-02-15 15:22 | EDM.PDOC ---
ED HPI GENERAL MEDICAL PROBLEM - General Chief Complaint: Respiratory Problem Stated Complaint: headache cough Time Seen by Provider: 02/15/21 15:03 Source of Information: Reports: Patient, RN Notes Reviewed History Limitations: Reports: No Limitations - History of Present Illness INITIAL COMMENTS - FREE TEXT/NARRATIVE: Patient is a 30-year-old female who presents to the ER for evaluation of her [id number] symptoms. Patient states that her son tested positive for COVID- 19 on February 08 but she states he has been pretty much isolated in his room. States that she has not been around him much at all. She does note that for the last 3 or 4 days however she has had a headache, body aches, fatigue, cough, sore throat. States that it feels as if she has been run over by a truck. States that her headache seems to be all about her head. She has tried some Tylenol ibuprofen, last use was yesterday but states this does not even seem to be helping. States she has a history of migraines, but she typically gets migraines in the back of her head. She is unvaccinated for COVID-19. 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 (see below) Other Treatments PIPELINE EXECUTIVE: none Generalized Pain Score (Numeric/FACES): 10 Throat Pain Score (Numeric/FACES): 7 Headache Pain Score (Numeric/FACES): 10 - Related Data Allergies Allergy/AdvReac Type Severity Reaction Status Date / Time azithromycin Allergy Severe Hives Verified 01/15/21 13:18 prochlorperazine Allergy Severe Itching Verified 01/15/21 13:18 [From Compazine] iv contrast Allergy Unknown Chest Uncoded 06/09/20 08:13 Presssure Home Meds: Home Meds Ibuprofen 600 mg PO Q6H PRN #60 tablet 06/09/20 [Rx] Past Medical History HEENT History: Reports: Otitis Media, Other (See Below) Other HEENT History: dental issues, has dentures Respiratory History: Reports: Other (See Below) Other Respiratory History: pneumonia Gastrointestinal History: Reports: Irritable Bowel Syndrome, Other (See Below) Other Gastrointestinal History: nausea, abdominal wall pain Genitourinary History: Reports: UTI, Recurrent, Other (See Below) Other Genitourinary History: dysuria 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: Musculoskeletal History: Reports: Other (See Below) Other Musculoskeletal History: body aches Neurological History: Reports: Migraines Psychiatric History: Reports: Anxiety, Depression Endocrine/Metabolic History: Reports: Vitamin D Deficiency - Past Surgical History GI Surgical History: Reports: Cholecystectomy Female Surgical History: Reports: Section Other Female Surgeries/Procedures: x 2 Social & Family History - Caffeine Use Caffeine Use: Reports: Soda - Living Situation & Occupation Living situation: Reports: , with Significant Other (Boyfriend), with Family (2 kids) Occupation: Employed ([employer]) ED ROS GENERAL - Review of Systems Review Of Systems: Comprehensive ROS is negative, except as noted in HPI. ED EXAM, GENERAL - Physical Exam Exam: See Below Exam Limited By: No Limitations General Appearance: Alert, WD/WN, No Apparent Distress Throat/Mouth: Normal Inspection, Normal Lips, Normal Teeth, Normal Gums, Normal Oropharynx, Normal Voice, No Airway Compromise Respiratory/Chest: No Respiratory Distress, Lungs Clear, Normal Breath Sounds, No Accessory Muscle Use, Chest Non-Tender Cardiovascular: Normal Peripheral Pulses, Regular Rate, Rhythm, No Edema GI/Abdominal: Normal Bowel Sounds, Soft, Non-Tender, No Distention, No Mass Extremities: Normal Inspection, Normal Capillary Refill Neurological: Alert, Oriented, Normal Cognition, No Motor/Sensory Deficits Psychiatric: Normal Affect, Normal Mood Skin Exam: Warm, Dry, Intact, Normal Color, No Rash Course - Vital Signs Last Recorded V/S: Last Vital Signs Temp 98.5 F 02/15/21 15:02 Pulse 97 02/15/21 15:02 Resp 20 02/15/21 15:02 BP 119/63 02/15/21 15:02 Pulse Ox 99 02/15/21 15:02 - Orders/Labs/Meds Orders: Active Orders 24 hr Category Date Time Status Peripheral IV Care [RC] . DIRECTED Care 02/15/21 15:13 Ordered Chest 1V Frontal [CR] Stat Exams 02/15/21 16:36 Ordered Sodium Chloride 0.9% [Saline Flush] Med 02/15/21 15:13 Ordered 10 ml FLUSH ASDIRECTED PRN Peripheral IV Insertion Adult [OM.PC] Routine Oth 02/15/21 15:13 Ordered Medication Orders Sodium Chloride (Sodium Chloride 0.9% 10 Ml Syringe) 10 ml FLUSH ASDIRECTED PRN PRN Reason: Keep Vein Open Last Admin: 02/15/21 16:06 Dose: 10 ml Documented by: ASHLEIGH Labs: Laboratory Tests 02/15/21 02/15/21 02/15/21 Range/Units 14:43 16:00 16:00 WBC 8.08 (3.98-10.04) K/mm3 RBC 4.15 (3.98-5.22) M/mm3 Hgb 11.8 (11.2-15.7) gm/dl Hct 37.3 (34.1-44.9) % MCV 89.9 (79.4-94.8) fl MCH 28.4 (25.6-32.2) pg MCHC 31.6 L (32.2-35.5) g/dl RDW Std Deviation 51.2 H (36.4-46.3) fL Plt Count 268 (182-369) K/mm3 MPV 9.8 (9.4-12.3) fl Neut % (Auto) 87.2 H (34.0-71.1) % Lymph % (Auto) 3.7 L (19.3-51.7) % Coos % (Auto) 7.8 (4.7-12.5) % Eos % (Auto) 1.1 (0.7-5.8) Baso % (Auto) 0.1 (0.1-1.2) % Neut # (Auto) 7.04 H (1.56-6.13) K/mm3 Lymph # (Auto) 0.30 L (1.18-3.74) K/mm3 Coos # (Auto) 0.63 H (0.24-0.36) K/mm3 Eos # (Auto) 0.09 (0.04-0.36) K/mm3 Baso # (Auto) 0.01 (0.01-0.08) K/mm3 Sodium (136-145) mEq/L Potassium (3.5-5.1) mEq/L Chloride (98-107) mEq/L Carbon Dioxide (21-32) mEq/L Anion Gap (5-15) BUN (7-18) mg/dL Creatinine (0.55-1.02) mg/dL Est Cr Clr Drug Dosing mL/min Estimated GFR (MDRD) (>60) mL/min BUN/Creatinine Ratio (14-18) Glucose (70-99) mg/dL Calcium (8.5-10.1) mg/dL Magnesium (1.8-2.4) mg/dL Total Bilirubin (0.2-1.0) mg/dL AST (15-37) U/L ALT (14-59) U/L Alkaline Phosphatase (46-116) U/L C-Reactive Protein <0.2 (<1.0) mg/dL Total Protein (6.4-8.2) g/dl Albumin (3.4-5.0) g/dl Globulin gm/dL Albumin/Globulin Ratio (1-2) Influenza Type A RNA Negative (NEGATIVE) Influenza Type B RNA Negative (NEGATIVE) SARS-CoV-2 RNA (JACOBY) Positive H (NEGATIVE) 02/15/21 Range/Units 16:00 WBC (3.98-10.04) K/mm3 RBC (3.98-5.22) M/mm3 Hgb (11.2-15.7) gm/dl Hct (34.1-44.9) % MCV (79.4-94.8) fl MCH (25.6-32.2) pg MCHC (32.2-35.5) g/dl RDW Std Deviation (36.4-46.3) fL Plt Count (182-369) K/mm3 MPV (9.4-12.3) fl Neut % (Auto) (34.0-71.1) % Lymph % (Auto) (19.3-51.7) % Coos % (Auto) (4.7-12.5) % Eos % (Auto) (0.7-5.8) Baso % (Auto) (0.1-1.2) % Neut # (Auto) (1.56-6.13) K/mm3 Lymph # (Auto) (1.18-3.74) K/mm3 Coos # (Auto) (0.24-0.36) K/mm3 Eos # (Auto) (0.04-0.36) K/mm3 Baso # (Auto) (0.01-0.08) K/mm3 Sodium 138 (136-145) mEq/L Potassium 3.6 (3.5-5.1) mEq/L Chloride 103 (98-107) mEq/L Carbon Dioxide 23 (21-32) mEq/L Anion Gap 15.6 H (5-15) BUN 7 (7-18) mg/dL Creatinine 0.9 (0.55-1.02) mg/dL Est Cr Clr Drug Dosing 74.23 mL/min Estimated GFR (MDRD) > 60 (>60) mL/min BUN/Creatinine Ratio 7.8 L (14-18) Glucose 78 (70-99) mg/dL Calcium 8.3 L (8.5-10.1) mg/dL Magnesium 1.7 L (1.8-2.4) mg/dL Total Bilirubin 0.5 (0.2-1.0) mg/dL AST 15 (15-37) U/L ALT 20 (14-59) U/L Alkaline Phosphatase 61 (46-116) U/L C-Reactive Protein (<1.0) mg/dL Total Protein 7.8 (6.4-8.2) g/dl Albumin 4.1 (3.4-5.0) g/dl Globulin 3.7 gm/dL Albumin/Globulin Ratio 1.1 (1-2) Influenza Type A RNA (NEGATIVE) Influenza Type B RNA (NEGATIVE) SARS-CoV-2 RNA (JACOBY) (NEGATIVE) Meds: Medications Generic Name Dose Route Start Last Admin Trade Name Freq PRN Reason Stop Dose Admin Sodium Chloride 10 ml 02/15/21 15:13 02/15/21 16:06 Sodium Chloride 0.9% 10 Ml Syringe FLUSH 10 ml ASDIRECTED PRN Administration Keep Vein Open Discontinued Medications Generic Name Dose Route Start Last Admin Trade Name Freq PRN Reason Stop Dose Admin Diphenhydramine HCl 25 mg 02/15/21 15:13 02/15/21 15:45 Diphenhydramine 50 Mg/Ml Sdv IVPUSH 02/15/21 15:14 25 mg ONETIME ONE Administration Ketorolac Tromethamine 30 mg 02/15/21 15:13 02/15/21 15:43 Ketorolac 30 Mg/Ml Sdv IVPUSH 02/15/21 15:14 30 mg ONETIME ONE Administration Metoclopramide HCl 10 mg 02/15/21 15:13 02/15/21 15:49 Metoclopramide 10 Mg/2 Ml Sdv IVPUSH 02/15/21 15:14 10 mg ONETIME ONE Administration - Re-Assessments/Exams Free Text/Narrative Re-Assessment/Exam: 02/15/21 15:24 Patient presents to the ER for evaluation of her multiple COVID-19 symptoms, we will go ahead and do a Covid swab, get some basic labs a chest x-ray give her some medicines for her headache. 02/15/21 16:43 Patient labs have resulted, Covid screen is positive, influenza screen is negative. Chest x-ray order was missed at the initial time of orders, so 1 will be performed at this time, labs are all unremarkable at this time. Patient was made aware that she has COVID-19, states that her headache is feeling much better due to the meds given. 02/15/21 17:07 Chest x-ray shows no obvious sign of any type of pneumonia at this time. Require discharge home with general recommendations. Departure - Departure Time of Disposition: 17:08 Disposition: Home, Self-Care 01 Condition: Good Clinical Impression: COVID-19 - Discharge Information *PRESCRIPTION DRUG MONITORING PROGRAM REVIEWED*: No *COPY OF PRESCRIPTION DRUG MONITORING REPORT IN PATIENT LESVIA: No Instructions: 10 Things You Can Do to Manage Your COVID-19 Symptoms at Home - [facility] (11/03/2020) Referrals: Araseli Brar NP [Primary Care Provider] - Forms: ED Department Discharge Additional Instructions: You were seen in the ER today for ongoing and/or worsening respiratory symptoms. Your chest x-ray showed no signs of pneumonia at this time. Your oxygen levels were great at 98-99% on room air. Please try to increase your oral fluid intake, and eat multiple small meals throughout the day, to keep yourself healthy. You need to keep yourself nourished in order to fight off this disease. You can try a liquid diet like gatorade/powerade as well to get your electrolytes. You may take 500 mg Tylenol every hours 6 hours for pain/fever relief. Do not exceed 4000 mg Tylenol in a 24-hour time span. However, running a fever is your body's natural response to illness, and it allows the body to develop antibodies to disease, we are recommending trying to limit the use of Tylenol as much as possible to allow your body's natural immune response. Recommend you obtain a pulse oximeter and monitor your oxygen levels at home, you should place the monitor on your finger, and sit in a calm, quiet position for a few minutes and then record the number that is on the screen. If this consistently below 90% on room air without movement, this would be cause for concern to come back to the hospital for further management of your COVID-19 disease. Please follow all guidance set forth from [facility], regarding isolation purposes for your disease process. General isolation times are 10 days from when you started being symptomatic. Sepsis Event Note (ED) - Focused Exam Vital Signs: Vital Signs Temp Pulse Resp BP Pulse Ox 02/15/21 15:02 98.5 F 97 20 119/63 99 - My Orders Last 24 Hours: My Active Orders 02/15/21 15:13 Peripheral IV Care [RC] . DIRECTED Sodium Chloride 0.9% [Saline Flush] 10 ml FLUSH ASDIRECTED PRN Peripheral IV Insertion Adult [OM.PC] Routine 02/15/21 16:36 Chest 1V Frontal [CR] Stat - Assessment/Plan Last 24 Hours: My Active Orders 02/15/21 15:13 Peripheral IV Care [RC] . DIRECTED Sodium Chloride 0.9% [Saline Flush] 10 ml FLUSH ASDIRECTED PRN Peripheral IV Insertion Adult [OM.PC] Routine 02/15/21 16:36 Chest 1V Frontal [CR] Stat
[2021-02-15 16:19] LABS: CORONAVIRUS COVID-19 NAA POSITIVE (NEGATIVE)
--- NOTE | 2021-02-15 17:40 | CR ---
Chest: Portable view of the chest was obtained. Comparison: Prior chest x-ray of 11/19/19. Heart size and mediastinum are within normal limits. Slight parenchymal change is seen within the left base. Lungs otherwise are clear. Heart size and mediastinum are normal. Bony structures show nothing acute. Surgical clips are seen from prior cholecystectomy. Impression: 1. Minimal density is noted within the left lung base. Difficult to exclude minimal COVID pneumonia. 2. Portable chest x-ray is otherwise unremarkable. Diagnostic code #3
== END 2021-02-15 18:17 | disposition home or self-care (01) ==
LOC: JD.ED 13:52
DX: U07.1 COVID-19 (principal); Z88.1 Allergy status to other antibiotic agents; Z91.041 Radiographic dye allergy status
CPT/HCPCS: 0240U; 36415; 71045; 80053; 83735; 85025; 86140; 96374; 96375; 99284; J1200; J1885; J2765

== ENCOUNTER 2021-04-22 09:17 | Emergency (ER) | payer MEDICAID ==
--- NOTE | 2021-04-22 09:43 | EDM.PDOC ---
ED HPI GENERAL MEDICAL PROBLEM - General Chief Complaint: ENT Problem Stated Complaint: TOOTH PAIN Time Seen by Provider: 04/22/21 09:43 - History of Present Illness INITIAL COMMENTS - FREE TEXT/NARRATIVE: 30-year-old female presents the emergency room with dental pain. For the last 3 to 4 days patient is worsening dental pain she has a tooth that is fractured left lower. She is on multiple teeth removed in the past. Her mo st posterior tooth which was at one point probably one of the anterior molars is remaining posterior aspect of the tooth is missing. She is got minimal erythema around this but is is exquisitely tender. She has been using Tylenol and Motrin without much relief. It does not sound like her dosing has been excessive but she has been at maximal dosage. She has not developed any facial swelling no fevers or chills. Left Lower Tooth/Teeth Pain Score (Numeric/FACES): 10 - Related Data Allergies Allergy/AdvReac Type Severity Reaction Status Date / Time azithromycin Allergy Intermediate Hives Verified 04/22/21 09:34 prochlorperazine Allergy Mild Itching Verified 04/22/21 09:34 [From Compazine] Iodinated Contrast Media AdvReac Chest Verified 04/22/21 09:34 Presssure Home Meds: Home Meds Ibuprofen 600 mg PO Q6H PRN #60 tablet 06/09/20 [Rx] Amoxicillin 500 mg PO TID #29 tab 04/22/21 [Rx] Hydrocodone/Acetaminophen [HYDROcodone-Acetaminophen 5-325 MG] 1 - 2 each PO Q6H PRN #20 tab 04/22/21 [Rx] Past Medical History HEENT History: Reports: Otitis Media, Other (See Below) Other HEENT History: dental issues, has dentures Respiratory History: Reports: Other (See Below) Other Respiratory History: pneumonia Gastrointestinal History: Reports: Irritable Bowel Syndrome, Other (See Below) Other Gastrointestinal History: nausea, abdominal wall pain Genitourinary History: Reports: UTI, Recurrent, Other (See Below) Other Genitourinary History: dysuria 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: Musculoskeletal History: Reports: Other (See Below) Other Musculoskeletal History: body aches Neurological History: Reports: Migraines Psychiatric History: Reports: Anxiety, Depression Endocrine/Metabolic History: Reports: Vitamin D Deficiency - Infectious Disease History Infectious Disease History: Reports: Novel Coronavirus - Past Surgical History Head Surgeries/Procedures: Reports: None HEENT Surgical History: Reports: None Cardiovascular Surgical History: Reports: None Respiratory Surgical History: Reports: None GI Surgical History: Reports: Cholecystectomy Female Surgical History: Reports: Section Other Female Surgeries/Procedures: x 2 Endocrine Surgical History: Reports: None Neurological Surgical History: Reports: None Musculoskeletal Surgical History: Reports: None Oncologic Surgical History: Reports: None Dermatological Surgical History: Reports: None Social & Family History - Family History Family Medical History: No Pertinent Family History - Caffeine Use Caffeine Use: Reports: None - Living Situation & Occupation Living situation: Reports: , with Significant Other (Boyfriend), with Family (2 kids) Occupation: Employed ([employer]) ED ROS ENT - Review of Systems Review Of Systems: See Below Constitutional: Reports: No Symptoms HEENT: Reports: Dental Pain Respiratory: Reports: No Symptoms Cardiovascular: Reports: No Symptoms GI/Abdominal: Reports: No Symptoms ED EXAM, ENT - Physical Exam Exam: See Below Exam Limited By: No Limitations General Appearance: Moderate Distress (She is definitely very uncomfortable with this.) Eye Exam: Bilateral Eye: Normal Inspection Ears: Normal External Exam, Normal Canal, Hearing Grossly Normal, Normal TMs Nose: Normal Inspection, Normal Mucousa, No Blood Mouth/Throat: Normal Gums, Normal Lips, Normal Oropharynx (Left lower anterior molar, the posterior ones have been removed previously, is fractured posterior half of the tooth is missing.) Head: Atraumatic, Normocephalic Neck: Normal Inspection, Supple, Non-Tender, Full Range of Motion. No: L ymphadenopathy (L), Lymphadenopathy (R) Respiratory/Chest: No Respiratory Distress, Lungs Clear, Normal Breath Sounds Cardiovascular: Regular Rate, Rhythm, No Edema, No Murmur Course - Vital Signs Last Recorded V/S: Last Vital Signs Temp 36.4 C 04/22/21 09:26 Pulse 72 04/22/21 09:26 Resp 18 04/22/21 09:26 BP 126/51 L 04/22/21 09:26 Pulse Ox 95 04/22/21 09:26 Departure - Departure Time of Disposition: 10:01 Disposition: Home, Self-Care 01 Clinical Impression: Dental caries, Pain due to dental caries - Discharge Information Referrals: Araseli Brar NP [Primary Care Provider] - Forms: ED Department Discharge Additional Instructions: Return to the emergency room with any questions problems or worsening symptoms. Follow-up with your dentist as soon as possible. This is ultimately how this will be fixed. I have sent a prescription for hydrocodone and amoxicillin to the [facility] pharmacy up by [place] it is the only pharmacy open today. They are open between noon and 4 PM. Take the amoxicillin 1 3 times a day you were given a dose here in the emergency room take your next dose late afternoon early evening and another dose at bedtime. Use the hydrocodone/acetaminophen 1 or 2 every 6 hours as needed for pain. Allow 12 hours after using this medication before driving or returning to work. Avoid using any supplemental acetaminophen or Tylenol as the hydrocodone contains it. But you may use ibuprofen as needed as well. Sepsis Event Note (ED) - Evaluation Sepsis Screening Result: No Definite Risk - Focused Exam Vital Signs: Vital Signs Temp Pulse Resp BP Pulse Ox 04/22/21 09:26 36.4 C 72 18 126/51 L 95
[2021-04-22] MEDS ORDERED: Acetaminophen/HYDROcodone 325-5 MG Tab PO ONE (09:51)
[2021-04-22] MEDS ORDERED: Amoxicillin 500 MG Cap PO ONE (09:51)
== END 2021-04-22 10:25 | disposition home or self-care (01) ==
LOC: JD.ED 09:17
DX: K02.9 Dental caries, unspecified (principal); Z88.1 Allergy status to other antibiotic agents; Z88.8 Allergy status to other drugs, medicaments and biological substances; Z91.041 Radiographic dye allergy status
CPT/HCPCS: 99282; A9270

== ENCOUNTER 2021-12-01 14:58 | Emergency (ER) | payer MEDICAID ==
[2021-12-01] MEDS ORDERED: Sodium Chloride 0.9% 10 ML Syringe FLUSH PRN (15:50)
[2021-12-01] MEDS ORDERED: Ondansetron 4 MG/2 ML SDV IVPUSH ONE (15:51)
[2021-12-01] MEDS ORDERED: HYDROmorphone 0.5 MG/0.5 ML Syringe IVPUSH ONE (15:51)
[2021-12-01] MEDS ORDERED: Sodium Chloride 0.9% 1,000 ML IV STA (15:51)
[2021-12-01 16:27] LABS: ESTIMATED GFR 87 mL/min (>60)
[2021-12-01] MEDS ORDERED: Ketorolac 30 MG/ML SDV IVPUSH ONE (17:48)
[2021-12-01] MEDS ORDERED: Acetaminophen/HYDROcodone 325-5 MG Tab PO ONE (17:48)
== END 2021-12-01 18:05 | disposition home or self-care (01) ==
LOC: JD.ED 14:58
DX: R10.32 Left lower quadrant pain (principal); F17.210 Nicotine dependence, cigarettes, uncomplicated; Z88.1 Allergy status to other antibiotic agents; Z88.8 Allergy status to other drugs, medicaments and biological substances; Z91.041 Radiographic dye allergy status; Z86.16 Personal history of COVID-19
CPT/HCPCS: 36415; 74176; 80053; 81001; 83690; 84703; 85025; 86140; 96361; 96374; 96375; 99284; A9270; J1170; J1885; J2405; J3490; J7030

== ENCOUNTER 2021-12-07 18:36 | Emergency (ER) | payer MEDICAID ==
[2021-12-07] MEDS ORDERED: Sodium Chloride 0.9% 10 ML Syringe FLUSH PRN (19:21)
[2021-12-07] MEDS ORDERED: Ondansetron 4 MG/2 ML SDV IVPUSH ONE (19:21)
[2021-12-07] MEDS ORDERED: HYDROmorphone 0.5 MG/0.5 ML Syringe IVPUSH ONE (19:30)
[2021-12-07] MEDS ORDERED: Sodium Chloride 0.9% 1,000 ML IV SCH (19:30)
[2021-12-07] MEDS ORDERED: Dicyclomine 10 MG Cap PO ONE (19:33)
[2021-12-07 19:51] LABS: ESTIMATED GFR 100 mL/min (>60)
[2021-12-07] MEDS ORDERED: Alum Hydrox/Mag Hydrox/Simeth 30 ML, Lidocaine 2% 15 ML PO ONE ×2 (21:12)
[2021-12-07] MEDS ORDERED: Fluconazole 150 MG Tab PO ONE (21:16)
== END 2021-12-07 22:48 | disposition home or self-care (01) ==
LOC: JD.ED 18:36
DX: R10.30 Lower abdominal pain, unspecified (principal); B37.9 Candidiasis, unspecified; Z88.1 Allergy status to other antibiotic agents; Z88.8 Allergy status to other drugs, medicaments and biological substances; Z91.041 Radiographic dye allergy status; Z79.899 Other long term (current) drug therapy; Z86.16 Personal history of COVID-19; Z90.49 Acquired absence of other specified parts of digestive tract
CPT/HCPCS: 36415; 74176; 80053; 81001; 83690; 85025; 86140; 87086; 96361; 96374; 96375; 99284; A9270; J1170; J2405; J3490; J7030

== ENCOUNTER 2022-07-18 08:59 | Emergency (ER) | payer BC, MEDICAID ==
[2022-07-18] MEDS ORDERED: Ondansetron 4 MG/2 ML SDV IVPUSH ONE (10:17)
[2022-07-18] MEDS ORDERED: HYDROmorphone 1 MG/ML Syringe IVPUSH ONE (10:17)
[2022-07-18] MEDS ORDERED: Sodium Chloride 0.9% 1,000 ML IV ONE (10:17)
[2022-07-18] MEDS ORDERED: Loperamide 2 MG Cap PO STA (12:31)
== END 2022-07-18 16:15 | disposition home or self-care (01) ==
LOC: JD.ED 08:59
DX: A08.4 Viral intestinal infection, unspecified (principal); Z88.1 Allergy status to other antibiotic agents; Z91.041 Radiographic dye allergy status; Z87.891 Personal history of nicotine dependence; Z86.16 Personal history of COVID-19; Z90.49 Acquired absence of other specified parts of digestive tract
CPT/HCPCS: 36415; 80053; 83690; 83735; 85007; 85027; 96361; 96374; 96375; 99284; A9270; J1170; J2405; J7030

== ENCOUNTER 2022-09-18 12:38 | Emergency (ER) | payer MEDICAID ==
[2022-09-18] MEDS ORDERED: Ondansetron 4 MG/2 ML SDV IVPUSH ONE (13:09)
[2022-09-18] MEDS ORDERED: Sodium Chloride 0.9% 1,000 ML IV ONE (13:09)
[2022-09-18] MEDS ORDERED: Sodium Chloride 0.9% 10 ML Syringe FLUSH PRN (13:09)
[2022-09-18] MEDS ORDERED: HYDROmorphone 1 MG/ML Syringe IVPUSH ONE (13:09)
[2022-09-18] MEDS ORDERED: methylPREDNISolone Sodium Succinate 125 MG/2 ML SDV IVPUSH ONE (13:11)
[2022-09-18] MEDS ORDERED: diphenhydrAMINE 50 MG/ML SDV IVPUSH ONE (13:11)
[2022-09-18 13:40] LABS: BASOPHILS ABSOLUTE AUTO 0.02 K/mm3 (0.01-0.08); BASOPHILS PERCENT AUTO 0.2 % (0.1-1.2); EOSINOPHILS ABSOLUTE AUTO 0.04 K/mm3 (0.04-0.36); EOSINOPHILS PERCENT AUTO 0.5 (0.7-5.8); HEMATOCRIT 39.4 % (34.1-44.9); HEMOGLOBIN 12.8 gm/dl (11.2-15.7); IMMATURE GRAN ABSOLUTE AUTO 0.01 K/mm3 (0.00-0.10); IMMATURE GRAN PERCENT AUTO 0.1 % (<=1.0); LYMPHOCYTES ABSOLUTE AUTO 1.25 K/mm3 (1.18-3.74); LYMPHOCYTES PERCENT AUTO 14.9 % (19.3-51.7); MEAN CORPUSCULAR HEMOGLOBIN 29.7 pg (25.6-32.2); MEAN CORPUSCULAR HGB CONC 32.5 g/dl (32.2-35.5); MEAN CORPUSCULAR VOLUME 91.4 fl (79.4-94.8); MEAN PLATELET VOLUME 9.5 fl (9.4-12.3); MONOCYTES ABSOLUTE AUTO 0.52 K/mm3 (0.24-0.36); MONOCYTES PERCENT AUTO 6.2 % (4.7-12.5); NEUTROPHILS ABSOLUTE AUTO 6.54 K/mm3 (1.56-6.13); NEUTROPHILS PERCENT AUTO 78.1 % (34.0-71.1); PLATELET COUNT,PLT 280 K/mm3 (182-369); RED BLOOD CELL COUNT 4.31 M/mm3 (3.98-5.22); WHITE BLOOD CELL COUNT,WBC 8.38 K/mm3 (3.98-10.04)
[2022-09-18 13:58] LABS: APPEARANCE,URINE CLEAR (Clear); BILIRUBIN,URINE NEGATIVE (Negative); COLOR,URINE YELLOW (Yellow); GLUCOSE,URINE NEGATIVE (Negative); KETONES,URINE NEGATIVE (Negative); LEUKOCYTE ESTERASE,URINE NEGATIVE (Negative); NITRITE,URINE NEGATIVE (Negative); OCCULT BLOOD,URINE NEGATIVE (Negative); PH,URINE 7.5 (5.0-8.0); PROTEIN,URINE NEGATIVE (Negative); UROBILINOGEN,URINE 0.2 (0.2-1.0)
[2022-09-18 14:00] LABS: A/G RATIO 1.1 (1-2); ALANINE AMINOTRANSFERASE,ALT 26 U/L (14-59); ALBUMIN 3.7 g/dl (3.4-5.0); ALKALINE PHOSPHATASE 62 U/L (46-116); ANION GAP 11.7 (5-15); ASPARTATE AMNIOTRANSFERASE,AST 20 U/L (15-37); BILIRUBIN TOTAL 0.5 mg/dL (0.2-1.0); BLOOD UREA NITROGEN,BUN 11 mg/dL (7-18); BUN/CREATININE RATIO 13.8 (14-18); C-REACTIVE PROTEIN <0.2 mg/dL (<1.0); CALCIUM 8.6 mg/dL (8.5-10.1); CARBON DIOXIDE,CO2 23 mEq/L (21-32); CHLORIDE,CL 107 mEq/L (98-107); CREATININE 0.8 mg/dL (0.55-1.02); EST CRCL DRUG DOSING (CG) 85.56 mL/min; ESTIMATED GFR 99 mL/min (>60); GLUCOSE RANDOM 85 mg/dL (70-99); LIPASE 89 U/L (73-393); MAGNESIUM 1.9 mg/dL (1.8-2.4); POTASSIUM,K 3.7 mEq/L (3.5-5.1); PROTEIN TOTAL,TP 7.1 g/dl (6.4-8.2); SODIUM,NA 138 mEq/L (136-145)
[2022-09-18 17:08] LABS: RBC,URINE 0-5 /hpf (0-5); WBC,URINE 0-5 /hpf (0-5)
[2022-09-18 17:09] LABS: BACTERIA,URINE FEW /hpf (FEW); MUCUS,URINE MODERATE /hpf (FEW)
== END 2022-09-18 16:05 | disposition home or self-care (01) ==
LOC: JD.ED 12:38
DX: R10.32 Left lower quadrant pain (principal); Z86.16 Personal history of COVID-19; Z91.041 Radiographic dye allergy status; Z88.1 Allergy status to other antibiotic agents; Z88.8 Allergy status to other drugs, medicaments and biological substances; Z90.49 Acquired absence of other specified parts of digestive tract; Z98.890 Other specified postprocedural states
CPT/HCPCS: 36415; 74176; 80053; 81001; 83690; 83735; 84702; 85025; 86140; 96361; 96374; 96375; 99284; J1170; J2405; J3490; J7030

== ENCOUNTER 2022-09-20 05:53 | Emergency (ER) | payer MEDICAID ==
[2022-09-20] MEDS ORDERED: Sodium Chloride 0.9% 1,000 ML IV ONE (06:16)
[2022-09-20] MEDS ORDERED: Ketorolac 30 MG/ML SDV IVPUSH ONE (06:16)
[2022-09-20] MEDS ORDERED: Ondansetron 4 MG/2 ML SDV IVPUSH ONE (06:17)
[2022-09-20 06:23] LABS: BASOPHILS ABSOLUTE AUTO 0.01 K/mm3 (0.01-0.08); BASOPHILS PERCENT AUTO 0.1 % (0.1-1.2); EOSINOPHILS PERCENT AUTO 1.3 (0.7-5.8); HEMATOCRIT 40.7 % (34.1-44.9); HEMOGLOBIN 13.1 gm/dl (11.2-15.7); IMMATURE GRAN ABSOLUTE AUTO 0.02 K/mm3 (0.00-0.10); IMMATURE GRAN PERCENT AUTO 0.3 % (<=1.0); LYMPHOCYTES ABSOLUTE AUTO 1.28 K/mm3 (1.18-3.74); LYMPHOCYTES PERCENT AUTO 16.5 % (19.3-51.7); MEAN CORPUSCULAR HEMOGLOBIN 29.4 pg (25.6-32.2); MEAN CORPUSCULAR HGB CONC 32.2 g/dl (32.2-35.5); MEAN CORPUSCULAR VOLUME 91.5 fl (79.4-94.8); MEAN PLATELET VOLUME 9.9 fl (9.4-12.3); MONOCYTES ABSOLUTE AUTO 0.38 K/mm3 (0.24-0.36); MONOCYTES PERCENT AUTO 4.9 % (4.7-12.5); NEUTROPHILS ABSOLUTE AUTO 5.96 K/mm3 (1.56-6.13); NEUTROPHILS PERCENT AUTO 76.9 % (34.0-71.1); PLATELET COUNT,PLT 299 K/mm3 (182-369); RED BLOOD CELL COUNT 4.45 M/mm3 (3.98-5.22); WHITE BLOOD CELL COUNT,WBC 7.75 K/mm3 (3.98-10.04)
[2022-09-20 06:36] LABS: A/G RATIO 1.1 (1-2); ALBUMIN 3.8 g/dl (3.4-5.0); ANION GAP 12.9 (5-15); BILIRUBIN TOTAL 0.7 mg/dL (0.2-1.0); BUN/CREATININE RATIO 7.8 (14-18); CALCIUM 8.7 mg/dL (8.5-10.1); CREATININE 0.9 mg/dL (0.55-1.02); EST CRCL DRUG DOSING (CG) 76.06 mL/min; POTASSIUM,K 3.9 mEq/L (3.5-5.1); PROTEIN TOTAL,TP 7.2 g/dl (6.4-8.2)
[2022-09-20 07:44] LABS: APPEARANCE,URINE CLEAR (Clear); BILIRUBIN,URINE NEGATIVE (Negative); COLOR,URINE YELLOW (Yellow); GLUCOSE,URINE NEGATIVE (Negative); KETONES,URINE NEGATIVE (Negative); LEUKOCYTE ESTERASE,URINE NEGATIVE (Negative); NITRITE,URINE NEGATIVE (Negative); OCCULT BLOOD,URINE NEGATIVE (Negative); PROTEIN,URINE NEGATIVE (Negative); UROBILINOGEN,URINE 0.2 (0.2-1.0)
[2022-09-20 07:51] LABS: BARBITURATE SCREEN,URINE NEGATIVE (CUTOFF=200); BENZODIAZEPINES SCREEN,URINE NEGATIVE (CUTOFF=150); BUPRENORPHINE SCREEN,URINE NEGATIVE (CUTOFF=10); METHADONE SCREEN, URINE NEGATIVE (CUTOFF=200); METHAMPHETAMINES SCREEN, URINE NEGATIVE (CUTOFF=500); OXYCODONE SCREEN,URINE NEGATIVE (CUT0FF=100); PROPOXYPHENE SCREEN,URINE NEGATIVE (CUTOFF=300); THC SCREEN,URINE 20 NG/ML PRESUMPTIVE POSITIVE (CUTOFF=50)
[2022-09-20 07:56] LABS: AMPHETAMINES SCREEN, URINE NEGATIVE (CUTOFF=500)
[2022-09-20] MEDS ORDERED: LORazepam 2 MG/ML SDV IVPUSH ONE (08:01)
== END 2022-09-20 11:14 | disposition home or self-care (01) ==
LOC: JD.ED 05:53
DX: R10.84 Generalized abdominal pain (principal); Z88.1 Allergy status to other antibiotic agents; Z88.8 Allergy status to other drugs, medicaments and biological substances; Z91.041 Radiographic dye allergy status
CPT/HCPCS: 36415; 76700; 80053; 80306; 81003; 82150; 84702; 85025; 96361; 96374; 96375; 99284; J1885; J2060; J2405; J7030

== ENCOUNTER 2023-02-04 18:37 | Emergency (ER) | payer OTHER, MEDICAID ==
[2023-02-04] MEDS ORDERED: Ketorolac 60 MG/2 ML SDV IM ONE (20:37)
[2023-02-04] MEDS ORDERED: tiZANidine 4 MG Tab PO SCH (20:45)
== END 2023-02-04 22:21 | disposition home or self-care (01) ==
LOC: JD.ED 18:37
DX: S13.9XXA Sprain of joints and ligaments of unspecified parts of neck, initial encounter (principal); S29.019A Strain of muscle and tendon of unspecified wall of thorax, initial encounter; Z86.16 Personal history of COVID-19; Z88.1 Allergy status to other antibiotic agents; Z88.8 Allergy status to other drugs, medicaments and biological substances; Z91.041 Radiographic dye allergy status
CPT/HCPCS: 72125; 72128; 96372; 99283; A9270; J1885; 99282

== ENCOUNTER 2023-12-01 07:49 | Emergency (ER) | payer SELFPAY ==
[2023-12-01] MEDS: Ketorolac 30 MG/ML SDV IVPUSH ONE (08:37)
[2023-12-01] MEDS: Sodium Chloride 0.9% 10 ML Syringe FLUSH PRN (08:40)
[2023-12-01 09:07] LABS: APPEARANCE,URINE CLEAR (Clear); BILIRUBIN,URINE 1+ (Negative); COLOR,URINE YELLOW (Yellow); GLUCOSE,URINE NEGATIVE (Negative); KETONES,URINE 1+ (Negative); LEUKOCYTE ESTERASE,URINE NEGATIVE (Negative); NITRITE,URINE NEGATIVE (Negative); OCCULT BLOOD,URINE NEGATIVE (Negative); PROTEIN,URINE NEGATIVE (Negative); UROBILINOGEN,URINE 0.2 (0.2-1.0)
[2023-12-01 09:08] LABS: BASOPHILS PERCENT AUTO 0.4 % (0.0-1.0); EOSINOPHILS ABSOLUTE AUTO 0.1 K/mm3 (0.0-0.4); EOSINOPHILS PERCENT AUTO 0.9 % (0.0-6.0); HEMATOCRIT 40.6 % (37.0-47.0); HEMOGLOBIN 13.1 gm/dl (12.0-16.0); IMMATURE GRAN ABSOLUTE AUTO 0.02 K/mm3 (0.00-0.05); IMMATURE GRAN PERCENT AUTO 0.3 % (0.0-0.4); LYMPHOCYTES ABSOLUTE AUTO 1.4 K/mm3 (1.0-4.8); LYMPHOCYTES PERCENT AUTO 20.1 % (24.0-44.0); MEAN CORPUSCULAR HGB CONC 32.3 g/dl (32.0-36.0); MEAN CORPUSCULAR VOLUME 93.1 fl (83.0-99.0); MONOCYTES ABSOLUTE AUTO 0.3 K/mm3 (0.0-0.8); MONOCYTES PERCENT AUTO 4.2 % (0.0-8.0); NEUTROPHILS ABSOLUTE AUTO 5.2 K/mm3 (1.8-7.7); NEUTROPHILS PERCENT AUTO 74.1 % (41.0-71.0); PLATELET COUNT,PLT 289 K/mm3 (150-400); RED BLOOD CELL COUNT 4.36 M/mm3 (4.10-5.30); WHITE BLOOD CELL COUNT,WBC 6.97 K/mm3 (3.9-11.3)
[2023-12-01 09:23] LABS: A/G RATIO 1.2 (1-2); ALBUMIN 3.9 g/dl (3.4-5.0); ANION GAP 13.6 (5-15); BILIRUBIN TOTAL 0.7 mg/dL (0.2-1.0); C-REACTIVE PROTEIN 0.13 mg/dL (<0.30); EST CRCL DRUG DOSING (CG) 67.8 mL/min; MAGNESIUM 1.7 mg/dL (1.8-2.4); POTASSIUM,K 3.6 mEq/L (3.5-5.1); PROTEIN TOTAL,TP 7.3 g/dl (6.4-8.2)
== END 2023-12-01 11:30 | disposition home or self-care (01) ==
LOC: JD.ED 07:49
DX: S39.011A Strain of muscle, fascia and tendon of abdomen, initial encounter (principal); F17.210 Nicotine dependence, cigarettes, uncomplicated; Z86.16 Personal history of COVID-19; Z79.899 Other long term (current) drug therapy; Z91.041 Radiographic dye allergy status; Z88.1 Allergy status to other antibiotic agents; X58.XXXA Exposure to other specified factors, initial encounter
CPT/HCPCS: 36415; 76705; 80053; 81003; 83735; 84703; 85025; 86140; 96374; 99284; J1885; J3490

== ENCOUNTER 2024-12-31 07:19 | Emergency (ER) | payer SELFPAY ==
[2024-12-31 07:46] LABS: APPEARANCE,URINE CLEAR (Clear); GLUCOSE,URINE NEGATIVE (Negative); OCCULT BLOOD,URINE TRACE-INTACT (Negative)
[2024-12-31 08:16] LABS: EPITHELIAL CELLS,URINE 0-5 /hpf (0-5)
== END 2024-12-31 08:50 | disposition home or self-care (01) ==
LOC: JD.ED 07:19
DX: N39.0 Urinary tract infection, site not specified (principal); Z79.899 Other long term (current) drug therapy; Z88.1 Allergy status to other antibiotic agents; Z88.8 Allergy status to other drugs, medicaments and biological substances; Z86.16 Personal history of COVID-19; Z90.49 Acquired absence of other specified parts of digestive tract
CPT/HCPCS: 81001; 99283

== ENCOUNTER 2025-02-22 14:52 | Emergency (ER) | payer BC ==
[2025-02-22] MEDS ORDERED: Sodium Chloride 0.9% 10 ML Syringe FLUSH PRN (16:11)
[2025-02-22] MEDS: Ondansetron 4 MG/2 ML SDV IVPUSH ONE (16:33)
[2025-02-22 16:37] LABS: BASOPHILS ABSOLUTE AUTO 0.1 K/mm3 (0.0-0.2); BASOPHILS PERCENT AUTO 0.5 % (0.0-1.0); EOSINOPHILS ABSOLUTE AUTO 0.2 K/mm3 (0.0-0.4); EOSINOPHILS PERCENT AUTO 1.6 % (0.0-6.0); IMMATURE GRAN ABSOLUTE AUTO 0.02 K/mm3 (0.00-0.05); IMMATURE GRAN PERCENT AUTO 0.2 % (0.0-0.4); LYMPHOCYTES ABSOLUTE AUTO 2.3 K/mm3 (1.0-4.8); LYMPHOCYTES PERCENT AUTO 24.5 % (24.0-44.0); MEAN PLATELET VOLUME 10.3 fl (9.4-12.3); MONOCYTES ABSOLUTE AUTO 0.5 K/mm3 (0.0-0.8); MONOCYTES PERCENT AUTO 5.5 % (0.0-8.0); NEUTROPHILS ABSOLUTE AUTO 6.4 K/mm3 (1.8-7.7); NEUTROPHILS PERCENT AUTO 67.7 % (41.0-71.0); NRBC ABSOLUTE 0.00 (0.00-0.02); NRBC PERCENT 0.0 % (0.0-0.2); PLATELET COUNT,PLT 296 K/mm3 (150-400); RED BLOOD CELL COUNT 4.28 M/mm3 (4.10-5.30); WHITE BLOOD CELL COUNT,WBC 9.44 K/mm3 (3.9-11.3)
[2025-02-22 16:45] LABS: APPEARANCE,URINE CLEAR (Clear); GLUCOSE,URINE NEGATIVE (Negative); OCCULT BLOOD,URINE TRACE-INTACT (Negative)
[2025-02-22 16:51] LABS: A/G RATIO 1.1 (1-2); ALANINE AMINOTRANSFERASE,ALT 20.0 U/L (14-59); ASPARTATE AMNIOTRANSFERASE,AST 17.0 U/L (15-37); BILIRUBIN TOTAL 0.4 mg/dL (0.2-1.0); BLOOD UREA NITROGEN,BUN 16.0 mg/dL (7-18); CARBON DIOXIDE,CO2 25.0 mEq/L (21-32); CHLORIDE,CL 106.0 mEq/L (98-107); CREATININE 0.9 mg/dL (0.55-1.02); EST CRCL DRUG DOSING (CG) 74.62 mL/min; ESTIMATED GFR 85.0 mL/min (>60); GLUCOSE RANDOM 81.0 mg/dL (70-99); POTASSIUM,K 4.2 mEq/L (3.5-5.1); PROTEIN TOTAL,TP 7.1 g/dl (6.4-8.2); SODIUM,NA 140.0 mEq/L (136-145)
== END 2025-02-22 18:46 | disposition home or self-care (01) ==
LOC: JD.ED 14:52
DX: R10.31 Right lower quadrant pain (principal); R11.2 Nausea with vomiting, unspecified; E86.0 Dehydration; Z88.8 Allergy status to other drugs, medicaments and biological substances; Z91.041 Radiographic dye allergy status; Z86.16 Personal history of COVID-19; Z90.49 Acquired absence of other specified parts of digestive tract
CPT/HCPCS: 36415; 74176; 76705; 80053; 81001; 83690; 84703; 85025; 86140; 96361; 96374; 99284; J2405; J7030